=== PATIENT | male | born 1965 | race Caucasian/White ===

== ENCOUNTER 2019-01-17 01:20 | Outpatient (CLI) | payer BC, SELFPAY ==
[2019-01-17 08:41] LABS: Anion Gap 8.1 mmol/L (3-11); BUN 10 mg/dL (7-18); CO2 30.9 mmol/L (21.0-32.0); CREATININE 0.92 mg/dL (0.70-1.30); Calcium 9.7 mg/dL (8.5-10.1); Chloride 101 mmol/L (98-107); Cholesterol 224 mg/dL (50-200); Glucose 130 mg/dL (70-100); HDL Cholesterol 51 mg/dL (40-60); LDL CHOLESTEROL 155 mg/dL (<100); Potassium 4.3 mmol/L (3.5-5.1); Sodium 140 mmol/L (136-145); Triglyceride 60 mg/dL (30-150)
== END 2019-01-17 01:40 ==
PROVIDERS: PCP Internal Medicine; Visit Provider Physician Assistant Medical
DX: I10 Essential (primary) hypertension (principal); E11.9 Type 2 diabetes mellitus without complications
CPT/HCPCS: 36415; 80048; 80061; 83721

== ENCOUNTER 2020-03-29 04:05 | Emergency (ER) | payer OTHER, SELFPAY ==
[2020-03-29 04:09] VITALS: PULSE 138; RESP 16; TEMP 36.8; O2SAT 96
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
[2020-03-29 04:21] VITALS: BP 145/99; PULSE 124
== END 2020-03-29 04:30 | disposition home or self-care (01) ==
PROVIDERS: Emergency Provider Emergency Medicine; PCP Internal Medicine
DX: S80.212A Abrasion, left knee, initial encounter (principal); S00.81XA Abrasion of other part of head, initial encounter; S00.411A Abrasion of right ear, initial encounter; Y35.811A Legal intervention involving manhandling, law enforcement official injured, initial encounter; Y99.0 Civilian activity done for income or pay
CPT/HCPCS: 90471; 99284; 99283

== ENCOUNTER 2020-06-11 01:20 | Outpatient (CLI) | payer BC, SELFPAY ==
[2020-06-11 07:30] LABS: HCT 46.4 % (40.0-50.0); HGB 16.5 g/dL (13.5-17.5); Mean Corp. HGB Concentration 35.6 g/dL (32.0-36.0); Mean Corpuscular Hemoglobin 34.7 pg (27.0-33.0); Mean Corpuscular Volume 97.5 fL (80-95); Platelet Count 213 x1000/uL (130-400); RBC 4.76 m/cumm (4.50-6.00); RBC Distribution Width 12.3 % (11.8-14.1); White Blood Cell Count 7.86 k/cumm (4.4-10.8)
[2020-06-11 07:55] LABS: Hemoglobin A1C 6.8 % (3.8-5.6)
[2020-06-11 08:23] LABS: ALT 100 U/L (16-63); AST 48 U/L (15-37); Albumin 4.1 g/dL (3.4-5.0); Alkaline Phosphatase 51 U/L (46-116); BUN 11 mg/dL (7-18); Bilirubin, Total 0.8 mg/dL (0.2-1.0); CREATININE 0.86 mg/dL (0.70-1.30); Calcium 9.5 mg/dL (8.5-10.1); Calculated LDL 156 mg/dL (<100); Chloride 100 mmol/L (98-107); Cholesterol 211 mg/dL (<200); Glucose 161 mg/dL (74-106); HDL Cholesterol 47 mg/dL (40-60); Potassium 4.6 mmol/L (3.5-5.1); Sodium 137 mmol/L (136-145); Total Protein 7.5 g/dL (6.4-8.2); Triglyceride 44 mg/dL (<150)
== END 2020-06-11 01:40 ==
PROVIDERS: Physician Assistant; PCP Internal Medicine; Visit Provider Internal Medicine
DX: Z00.00 Encounter for general adult medical examination without abnormal findings (principal); I10 Essential (primary) hypertension; E78.5 Hyperlipidemia, unspecified; E11.9 Type 2 diabetes mellitus without complications
CPT/HCPCS: 36415; 80053; 80061; 85027; 82043; 82570; 83036

== ENCOUNTER 2020-06-12 14:22 | Outpatient (REF) | payer BC, SELFPAY ==
[2020-06-19 23:04] LABS: SARS-CoV-2 RNA Undetected (Undetected); SARS-CoV-2 Specimen Source Nasopharynx
== END 2020-06-12 14:42 ==
LOC: NCHCN 14:22
PROVIDERS: PCP Internal Medicine; Visit Provider Nurse Practitioner Family
DX: Z11.59 Encounter for screening for other viral diseases (principal); J02.9 Acute pharyngitis, unspecified
CPT/HCPCS: U0003

== ENCOUNTER 2020-11-27 03:34 | Outpatient (CLI) | payer BC, SELFPAY ==
[2020-11-28 13:39] LABS: COVID-19 RT-PCR UVMMC Result Negative (Negative)
== END 2020-11-27 03:54 ==
PROVIDERS: PCP Internal Medicine; Visit Provider Surgery
DX: Z11.59 Encounter for screening for other viral diseases (principal); Z01.818 Encounter for other preprocedural examination
CPT/HCPCS: U0003

== ENCOUNTER 2020-12-01 10:07 | Day surgery (SDC) | payer BC, SELFPAY ==
--- NOTE | 2020-12-01 07:04 | W.COLOREPORT ---
Date of service: 12/01/20 Time of Service: 11:12 Colonoscopy Report Date of procedure: 12/01/20 Pre-op diagnosis general: Hx of polyps Post-op diagnosis procedure note: same (transverse, descending and sigmoid polyps and diverticulosis) Procedure: Colonoscopy with polypectomy Surgeon: Bia Berrios Anesthesia proc note operative: other (General/ASA 2/Lakisha Hoffmann, TINA) Estimated blood loss (mL): 3 Pathology: other (Transverse, descending and sigmoid polyp) Complications: None Disposition: same day Indications: The patient is here for Colonoscopy pre-op. His last screening was in 2017 and was remarkable for tubulovillious adenomatous polyps. He has no family history of colon cancer. He has not had any bowel habit changes. -Discussed colonoscopy bowel prep as well as the procedure. Discussed possible complications of the procedure to include bleeding, pain, perforation, missed small lesion/polyp, sore throat, aspiration and adverse reaction to the medications. Questions were answered to patient?s satisfaction. No guarantees were implied or given. Prep: Miralax/Dulcolax Procedure Start Time: :12 Procedure End Time: 11:40 Retraction Time: 19 minutes Findings: 3 polyps Moderate descending and sigmoid diverticulosis Procedure Description: After informed consent was obtained the patient was taken to the procedure room and placed in a left decubitous position. Monitors were applied and a time out was done. The patients name, date of , procedure, allergies to medications and metal in their body was reviewed. The patient was then sedated. Once sedated and comfortable a rectal exam was done. External exam was normal. Internal exam revealed a normal sphincter tone and no palpable masses. The prostate felt smooth and slightly enlarged. The scope was then introduced and retro-flexed. No internal hemorrhoids were identified. The scope was then advanced to the cecum without difficulty. The ileocecal valve and appendiceal orifice were identified. The prep was good. The scope was then slowly retracted over 19 minutes back into the rectum. Polyps were removed with cold forceps in the transverse and sigmoid colon and with cold snare in the descending colon. There was moderate diverticulosis of the descending and sigmoid colon. The scope was removed and the patient was woken up and taken back to Same day surgery in stable condition. The patient tolerated the procedure well and there were no immediate complications. Follow up: The patient should follow up in 3-5 years unless they develop changes in bowel habits or other new gastrointestinal complaints.
--- NOTE | 2020-12-01 07:05 | W.PM.DSUDISC ---
Discharge Plan Disposition Patient Disposition: HOME Condition: Good Discharge Details Reason For Visit: Colonoscopy Attending Provider: Bia Berrios Primary Care Provider: Triston Alba Home Meds and New Rx's Prescriptions: Continued indomethacin 25 MG capsule 25 mg PO Q8H PRN RF: 0 red yeast rice 600 mg capsule 600 mg PO BID RF: 0 omega-3 fatty acids [Fish Oil Concentrate] 1,000 mg capsule 1,000 mg PO DAILY RF: 0 metoprolol tartrate 25 mg tablet 25 mg PO DAILY RF: 0 lisinopril 20 mg tablet 20 mg PO DAILY RF: 0 aspirin 81 MG tablet,chewable 81 mg PO DAILY Qty: 100 RF: 0 metformin 500 MG tablet 500 mg PO BID@0800,1700 Qty: 60 RF: 0 Discontinued polyethylene glycol 3350 17 gram/dose powder 238 g PO ONCE Qty: 238 RF: 0 bisacodyl [Dulcolax (bisacodyl)] 5 mg tablet,delayed release (DR/EC) 5 mg PO ONCE Qty: 4 RF: 0 Discharge Instructions Instructions: Diverticulosis (DC), Colorectal Polyps (DC) Additional Instructions: Findings: 3 polyps Diverticulosis Follow up: 3-5 years Please call if you develop: fevers >101.5 Nausea or Vomiting Abdominal pain that is not transient DAY SURGERY UNIT POST ENDOSCOPY INSTRUCTIONS 1. Because there will be medication in your system for the next 24 hours, you may feel a little sleepy. Your coordination will be affected. Therefore: a. Do not drive or operate dangerous equipment for 24 hours. b. Do not drink alcohol beverages for 24 hours (not even beer). c. Plan to go home and rest for the day. 2. Generally there are no restrictions on your activity after a day or so has gone by, but you may feel a bit fatigued for a few days. 3 After you arrive home you may have a light meal and return to a normal diet as you can tolerate it without feeling sick to your stomach. 4. After surgery, you may feel pain or discomfort. This should be only transient, but if it persists please contact your doctor. 5. If there are any questions regarding the findings of your procedure, please feel free to contact your doctor. 6. If you are unable to contact your doctor with a problem, contact the hospital at [phone]. 7. Continue all your regular medications unless directed otherwise. I understand the above instructions and have no questions. Signature of Patient or Responsible Adult Escort Date/Time Name of Responsible Adult Escort Signature of Nurse Date/Time Activity:: Activity as Tolerated Diet:: High fiber Discharge Orders Discharge Orders: Discharge Order (Routine); Ordered 12/01/20 Ordered By: Bia Berrios
[2020-12-01 10:17] VITALS: BP 164/103; PULSE 65; RESP 16; TEMP 36.6; O2SAT 96
[2020-12-01] MEDS: Lactated Ringers 1,000 ML 80 ML IV (10:44)
--- NOTE | 2020-12-01 11:14 | BOWEL_PTH ---
PATIENT: Damian Phillips LOC: [facility] U#:[id number] AGE/SX: 55/M ROOM: RE12/01/[address]: Bia Berrios MD : 1965 BED: DIS: 12/01/2020 SPEC #: [id number] RECD: 12/01/20 12:48 STATUS: RADHA REQ #: [id number] RENARD: 12/01/20 11:[address]: Bia Berrios DEPT: Surgical Specimen RECD BY: Alessia Weinstein ENTERED: 12/01/20 12:49 SP TYPE: Bowel OTHR DR: Triston Alba Tissues: 1 - BIOPSY BOWEL 2 - BIOPSY BOWEL 3 - BIOPSY BOWEL Procedures: GROSS AND MICRO LEVEL 4 Comments: [id number]
[2020-12-01 12:19] VITALS: BP 142/89; PULSE 63; RESP 16; TEMP 36.5; O2SAT 99
== END 2020-12-01 12:40 | disposition home or self-care (01) ==
LOC: SUR 10:07
PROVIDERS: PCP Internal Medicine; Visit Provider Surgery
PROC: 0DJD8ZZ Inspection of Lower Intestinal Tract, Via Natural or Artificial Opening Endoscopic (ICD-10-PCS; CPT 45378; principal; 2020-12-01 11:30)
DX: Z12.11 Encounter for screening for malignant neoplasm of colon (principal); Z86.010 Personal history of colon polyps; D12.3 Benign neoplasm of transverse colon; K63.5 Polyp of colon; K57.30 Diverticulosis of large intestine without perforation or abscess without bleeding; I10 Essential (primary) hypertension; E11.9 Type 2 diabetes mellitus without complications
CPT/HCPCS: 45385; 45380; 88305; J2001

== ENCOUNTER 2021-05-12 20:26 | Outpatient (REF) | payer BC, SELFPAY ==
[2021-05-12 18:52] LABS: Hemoglobin A1C 9.1 % (<5.7)
[2021-05-12 18:58] LABS: ALT 127 U/L (16-63); AST 58 U/L (15-37); Albumin 3.8 g/dL (3.4-5.0); Alkaline Phosphatase 70 U/L (46-116); Anion Gap 6.8 mmol/L (3-11); BUN 13 mg/dL (7-18); Bilirubin, Total 0.6 mg/dL (0.2-1.0); CO2 31.2 mmol/L (21.0-32.0); CREATININE 0.9 mg/dL (0.70-1.30); Calcium 9.9 mg/dL (8.5-10.1); Calculated LDL 146 mg/dL (<100); Chloride 102 mmol/L (98-107); Cholesterol 227 mg/dL (<200); Glucose 203 mg/dL (74-106); HDL Cholesterol 39 mg/dL (40-60); Potassium 4.6 mmol/L (3.5-5.1); Sodium 140 mmol/L (136-145); Total Protein 7.6 g/dL (6.4-8.2); Triglyceride 214 mg/dL (<150)
[2021-05-12 19:06] LABS: COMMENT (LAB VIEW ONLY) 125.77 mg/dL; Microalb ug/mg Crea 16.5 ug/mg Cr
== END 2021-05-12 20:27 | disposition home or self-care (01) ==
LOC: NCHCN 20:26
PROVIDERS: PCP Internal Medicine; Visit Provider Nurse Practitioner Family
DX: E11.9 Type 2 diabetes mellitus without complications (principal); E78.5 Hyperlipidemia, unspecified; I10 Essential (primary) hypertension
CPT/HCPCS: 80053; 80061; 82043; 82570; 83036

== ENCOUNTER 2021-09-21 09:36 | Outpatient (REF) | payer BC, SELFPAY ==
[2021-09-21 20:05] LABS: ALT 55 U/L (16-63); AST 38 U/L (15-37); Albumin 3.9 g/dL (3.4-5.0); Alkaline Phosphatase 47 U/L (46-116); Anion Gap 10.3 mmol/L (3-11); BUN 11 mg/dL (7-18); Bilirubin, Total 0.6 mg/dL (0.2-1.0); CO2 25.7 mmol/L (21.0-32.0); CREATININE 0.8 mg/dL (0.70-1.30); Calcium 9.7 mg/dL (8.5-10.1); Calculated LDL 122 mg/dL (<100); Chloride 101 mmol/L (98-107); Cholesterol 185 mg/dL (<200); Glucose 121 mg/dL (74-106); HDL Cholesterol 54 mg/dL (40-60); Potassium 4.7 mmol/L (3.5-5.1); Sodium 137 mmol/L (136-145); Total Protein 7.3 g/dL (6.4-8.2); Triglyceride 45 mg/dL (<150)
== END 2021-09-21 09:37 | disposition home or self-care (01) ==
LOC: NCHCN 09:36
PROVIDERS: PCP Internal Medicine; Visit Provider Nurse Practitioner Family
DX: E78.5 Hyperlipidemia, unspecified (principal); I10 Essential (primary) hypertension
CPT/HCPCS: 80053; 80061

== ENCOUNTER 2022-06-21 08:51 | Outpatient (REF) | payer BC, SELFPAY ==
[2022-06-21 19:45] LABS: COMMENT (LAB VIEW ONLY) 111.71 mg/dL; Microalb ug/mg Crea 25.2 ug/mg Cr
== END 2022-06-21 08:52 | disposition home or self-care (01) ==
LOC: NCHCN 08:51
PROVIDERS: PCP Internal Medicine; Visit Provider Nurse Practitioner Family
DX: E11.9 Type 2 diabetes mellitus without complications (principal)
CPT/HCPCS: 82043; 82570

== ENCOUNTER → 2022-07-21 01:35 | Outpatient (CLI) | payer BC, SELFPAY ==
--- NOTE | 2022-07-21 | DI.MRI_ITS ---
Exam(s) MR LUMBAR SPINE WO EXAM: MR LUMBAR SPINE WO CLINICAL HISTORY: LOSS OF STRENGTH R53.1 BILAT LEG PAIN M79.606 RADICULOPATHY M50.122. TECHNIQUE: Multiplanar multisequence MRI of the Lumbar spine was performed. COMPARISON: No exams were available for comparison FINDINGS: Five lumbar vertebrae are presumed. Conus medullaris is at normal level. There is no evidence of conus mass nor subjacent clumping of in trathecal nerve roots to suggest arachnoiditis. The distal thecal sac appears unremarkable, located at the mid S2 level..There is no evidence of Tarlov intrasacral cysts nor other significant findings within the sacral canal Bones:There are no fractures nor ominous osseous lesions in the lumbar vertebral bodies and visualize d sacrum. With respect to the individual levels... T12-L1: Unremarkable L1-2: Normal disc height and signal. No disc herniation nor central canal stenosis.No foraminal steno sis L2-3: Normal disc height. No disc herniation nor central canal stenosis.No foraminal stenosis.No face t arthropathy. L3-4: Normal disc height. There is annular bulging in the floor of the exiting right neural foramen butno foraminal stenosis.Focal annular bulging central and left paracentral with slight flattening of the thecal sac but no prominent central canal stenosis. The exiting left neural foramen is widely p atent. No facet arthropathy. L4-5: Relatively preserved disc height. Mild central annular bulging without a dominant disc herniat ion. Central canal dimensions are lower normal. No foraminal stenosis. No significant facet arthro siva L5-S1: This level exhibits mild disc space narrowing, more so right than left side and there is indee d mild Modic type 1 sub endplate marrow edema changes on the right side. There is some annular bulgi ng. There is very mild anterolisthesis of L5 upon S1, more so on the right side and there is asymmet marty annular bulging slightly right of center which is subligamentous. Central canal dimensions are w ithin normal limits at this level. There is no foraminal stenosis on either side this are on the lef t side at this level. On the right side there is minimal vertical foraminal stenosis due to the slig ht asymmetry of disc height loss on the right side when compared to the left side of this disc space. There is, however, no prominent foraminal stenosis. There are mild degenerative changes in the rig ht facet joint evident at this level. Soft tissues: paraspinal soft tissues appear unremarkable. IMPRESSION: 1. Mild multilevel findings at L3-4 and L5-S1 levels, as described above. 2. No large disc herniations, prominent central canal stenosis nor prominent foraminal stenosis. 3. No significant osseous lesions. DATA REPOSITORY:
== END ==
PROVIDERS: PCP Internal Medicine; Visit Provider Internal Medicine
DX: M43.17 Spondylolisthesis, lumbosacral region (principal)
CPT/HCPCS: 72148

== ENCOUNTER → 2022-07-23 00:36 | Outpatient (CLI) | payer BC, SELFPAY ==
--- NOTE | 2022-07-23 | DI.RAD_ITS ---
Exam(s) XR KNEE LT 3V AP,LAT,NIKKY EXAM: XR KNEE LT 3V AP,LAT,NIKKY CLINICAL HISTORY: BILAT LEG PAIN M79.606 LOSS OF STRENGTH R53.1. TECHNIQUE: 2D digital imaging was performed. COMPARISON: CR XR KNEE RT 3V AP,LAT,NIKKY from 07/23/2022 FINDINGS: 3 views No evidence of fracture but there is a prominent joint effusion, even larger than the opposite side. Chondrocalcinosis is noted as well as prominent soft tissue densities in both compartments. Signifi cant distension of the suprapatellar bursa, appearing to be masses at this level. IMPRESSION: Similar but more prominent findings as evident in the opposite-right knee. Suspect intra-articular s oft tissue masses in addition to the chondrocalcinosis, possibly PVNS/pigmented villonodular synoviti s. MRI recommended DATA REPOSITORY: RADIATION DOSE DELIVERED:
--- NOTE | 2022-07-23 | DI.RAD_ITS ---
Exam(s) XR KNEE RT 3V AP,LAT,NIKKY EXAM: XR KNEE RT 3V AP,LAT,NIKKY CLINICAL HISTORY: BILAT LEG PAIN M79.606 LOSS OF STRENGTH R53.1. TECHNIQUE: 2D digital imaging was performed. COMPARISON: No exams were available for comparison FINDINGS: 3 views No evidence of acute fracture but there is a prominent joint effusion noted signifying internal deran gement. In addition, there is chondrocalcinosis and there appear to be small loose intra-articular b odies evident anterior posteriorly. Mild narrowing of the medial joint space. Small marginal osteop hytes off all compartments. No ominous osseous lesions. In addition, there is a 9 x 6 millimeter calcific density evident in the anterior aspect of the diste nded suprapatellar bursa, just behind the quadriceps tendon and located 4 cm above the patella. IMPRESSION: No fractures. Degenerative changes. Large joint effusion. If clinically indicated follow-up MRI can be performed for added sensitivity and specificity. DATA REPOSITORY: RADIATION DOSE DELIVERED:
--- OUTSIDE RECORDS SUMMARY | 2022-07-23 00:37 | XMS_ITS | Encounter Summary ---
:1965 Author Organization [facility] Address [address] [place] [address] Care Team Providers Name Role Phone Unknown, Provider Primary Care Provider Unknown, Provider Unavailable Triston Alba MD Primary Care Provider Encounter Details Date Type Department Care Team Description 11/27/2020 Lab Requisition [facility] Outr Resulting Lab, Pathology & Laboratory Provider [facility] [address] [place] [address] Social History Tobacco Use Types Packs/Day Years Used Date Never Assessed Sex Assigned at Date Recorded Not on file documented as of this encounter Plan of Treatment Not on filedocumented as of this encounter Procedures Procedure Name Priority Date/Time Associated Diagnosis Comme nts COVID-19 TEST [facility] Today 11/27/2020 8:51 EST LAB PCR COVID-19 TESTING Routine 11/27/2020 8:51 EST Resu lts for this procedure are i n the results section. documented in this encounter Results COVID-19 TEST [facility] LAB PCR (11/27/2020 8:51 EST) Specimen Swab - Entire nasopharynx (body structur e) Performing Organization Address City/State/ZIP Code Phon e Number [facility] [address] [place] [address] SERVICES COVID-19 TESTING (11/27/2020 8:51 EST) COVID-19 rt-PCR Negative Negative [facility] Result Comment: [facility] This test has not been FDA c leared or approved. This test has been authorized by FDA under an EUA for use by authorized laboratories. This test has been authorized only for detection of nucleic acid fro SERVICES m 2019-nCoV, not for any oth er viruses or pathogens. This test is only authorized for the duration of the declaration that circumstances exist justifying the authorization of emergency use of in vitro d iagnostic tests for detectio n and/or diagnosis of 2019-nCoV under section 564(b)(1) of Act, 21 U.S.C ?? 360bbb-3(b) (1), unless the authorization is terminated or revoked sooner. Negative results do not prec lude 2019-nCoV infection and should not be used as the sole basis for treatment or other patient management decisions. Negative results must be combined with clinical observa tions, patient history, and epidemiological informatio n. Performed on the [employer] Fusion instrument Performing Lab [place] [facility] Lab [facility] SERVICES Specimen Swab Performing Organization Address City/State/ZIP Code Phon e Number [facility] [address] [place] [address] SERVICES documented in this encounter Visit Diagnoses Not on filedocumented in this encounter Care Teams Tight Cooper Relationship Specialty Start Date End Date Unknown, ProviderMD PCP - General 01/02/16 11/30/20 Triston Alba MD PCP - General 12/01/20 [address] [place] [address] Unknown, MD Ray 01/02/16 documented as of this encounter
--- OUTSIDE RECORDS SUMMARY | 2022-07-23 00:37 | XMS_ITS | Encounter Summary ---
:1965 Author Organization [facility] Address [address] [place] [address] Care Team Providers Name Role Phone Unknown, Provider Primary Care Provider Unknown, Provider Unavailable Encounter Details Date Type Department Care Team Description 11/16/2017 Hospital Encounter [facility] [place] Unknown, Provider, [facility] [address] [facility] [phone] [place] [address] (Work) [phone] Social History Tobacco Use Types Packs/Day Years Used Date Never Assessed Sex Assigned at Date Recorded Not on file documented as of this encounter Discharge Disposition Disposition Code Departure Means Destination Home or Self Residential documented in this encounter Plan of Treatment Not on filedocumented as of this encounter Visit Diagnoses Not on filedocumented in this encounter Care Teams Editorial Writer Relationship Specialty Start Date End Date Unknown, ProviderMD PCP - General 01/02/16 11/30/20 Unknown, ProviderMD 01/02/16 documented as of this encounter
--- OUTSIDE RECORDS SUMMARY | 2022-07-23 00:37 | XMS_ITS | Encounter Summary ---
:1965 Author Organization [facility] Address [address] [place] [address] Care Team Providers Name Role Phone Unknown, Provider Primary Care Provider Unknown, Provider Unavailable Encounter Details Date Type Department Care Team Description 11/16/[address] [facility] Iglesia Rodriguez, DO [address] [facility] [address] [place], [place] [id number] (Wo rk) Social History Tobacco Use Types Packs/Day Years Used Date Never Assessed Sex Assigned at Date Recorded Not on file documented as of this encounter Plan of Treatment Not on filedocumented as of this encounter Procedures Procedure Name Priority Date/Time Associated Diagnosis Comme nts SURGICAL PATHOLOGY Routine 11/16/2017 10:01 Resul ts for this EST procedure are i n the results section. documented in this encounter Results SURGICAL PATHOLOGY (11/16/2017 10:01 EST) Pathology Report: SURGICAL PATHOLOGY [facility]PORT [facility] Reports generated via electronic interface contain joe ginal data; LABORATORY however they are lacking the format of the original re port. SERVICES Caution should be taken when reading/interpreting unfo rmatted reports. Name: ? LEANDRO PHILLIPS ? Accession #: ? [id number] ? : ? 1965 (Age: [age]) ??M ? Collect Date: ? 11/16/2017 ? Location: ? [facility] ? Receive Date: ? 017 ? Provider: IGLESIA RODRIGUEZ DO Copy to: ADELSO SAEZ MD ? Final Pathologic Diagnosis: COLON, ASCENDING POLYP, BIOPSY: - ??Fragments of tubulovillous adenoma. Document reviewed and electronically signed by: OSCAR ARITA MD Report ??Date: 11/18/2017 14:21 By the signature above, the attending physician certif ies that he/she has personally conducted a gross and/or microscopic examin ation of the described specimens and rendered or confirmed the above diagnosi s. Specimen(s) Received: Ascending colon polyp x2 Clinical History: Screening for colon cancer Gross Description: ? Received in formalin labelled with proper patient identification (initials H, E) and ascending colon polyp are th ree light finn tissues (0.6 x 0.3 x 0.3 cm, 0.6 x 0.2 x 0.2 cm, and 0.3 x 0.2 x 0.2 cm). Jeni landon submitted in 1. Mimarina Mendez 11/17/2017 12:22 PM End of Report Specimen Performing Organization Address City/State/ZIP Code Phon e Number [facility] [address] [place] [address] SERVICES documented in this encounter Visit Diagnoses Not on filedocumented in this encounter Care Teams Material Clerk Relationship Specialty Start Date End Date Unknown, Provider, PCP - General 01/02/16 11/30/20 Unknown, ProviderMD 01/02/16 documented as of this encounter
--- OUTSIDE RECORDS SUMMARY | 2022-07-23 00:37 | XMS_ITS | Encounter Summary ---
:1965 Author Organization [facility] Address [address] [place] [address] Care Team Providers Name Role Phone Unknown, Provider Unavailable Triston Alba MD Primary Care Provider Encounter Details Date Type Department Care Team Description 12/01/2020 Lab Requisition [facility] Chris Berrios for other Pathology & MD Jeana general examination Laboratory Medicine [address] [place], [place] [address] [facility] [id number] [place] [id number] Social History Tobacco Use Types Packs/Day Years Used Date Never Assessed Sex Assigned at Date Recorded Not on file documented as of this encounter Plan of Treatment Not on filedocumented as of this encounter Procedures Procedure Name Priority Date/Time Associated Diagnosis Comme nts SURGICAL PATHOLOGY Today 12/01/2020 11:14 Encounter for othe r Results for this EST general examination procedur e are in the results section. documented in this encounter Results SURGICAL PATHOLOGY (12/01/2020 11:14 EST) Final Diagnosis A. COLON, DESCENDING, BIOPSY: [facility] - Fecal material and minute portion of benign colonic mucosa [facility] B. COLON, TRANSVERSE, BIOPSY: SERVICES - Tubular adenoma C. COLON, SIGMOID, BIOPSY: - Hyperplastic polyp Attestation By the signature [facility] Electronica lly below, the attending CENTER signed by Porfirio, physician certifies LABORATORY Lissy Pagan MD on that they have 1) SERVICES 12/02/2020 a t 1232 personally conducted a gross and/or microscopic examination of the described specimen(s), and/or personally interpreted the results of laboratory testing of the described specimen(s), and 2) personally rendered or confirmed the above diagnosis. Clinical History H/O colon polyps [facility] SERVICES Gross Description A. [facility] Received in formalin neil d with proper patient identification (initials H, E) and descending colon polyp is a single fragment of finn tissue (0.2 x 0.2 x 0.2 cm). The specimen is submitted entirely in A1. [facility] B. SERVICES Received in formalin neil d with proper patient identification (initials H, E) and transverse colon polyp are 2 fragments of finn tissue measuring 0.2 cm and 0.3 cm in greatest dimension. The specimens are submitted in B1. C. Received in formalin neil d with proper patient identification (initials H, E) and sigmoid polyp is a single fragment of finn tissue (0.2 x 0.2 x 0.2 cm). The specimen is submitted entirely in C1. DESHAWN VELIZ(ASCP) 12/01/2020 16:22 Performing Lab [facility] SERVICES Scanned Images [facility] SERVICES Specimen Tissue - Colon, Polyp Tissue specimen (specimen) - Colon, Poly p Tissue specimen (specimen) - Colon, Poly p Performing Organization Address City/State/ZIP Code Phon e Number [facility] [address] [place] [address] SERVICES documented in this encounter Visit Diagnoses Diagnosis Encounter for other general examination documented in this encounter Care Teams Practicing Dermatologist Relationship Specialty Start Date End Date Triston Alba MD PCP - General 12/01/20 [address] [place] [address] Unknown, MD Ray 01/02/16 documented as of this encounter
== END ==
PROVIDERS: PCP Internal Medicine; Visit Provider Nurse Practitioner Family
DX: M11.261 Other chondrocalcinosis, right knee (principal); M17.11 Unilateral primary osteoarthritis, right knee
CPT/HCPCS: 73562

== ENCOUNTER 2022-08-27 11:16 | Outpatient (CLI) | payer BC, SELFPAY ==
--- NOTE | 2022-08-27 11:00 | DI.RAD_ITS ---
Exam(s) XR FINGER RT INDEX EXAM: XR FINGER RT INDEX CLINICAL HISTORY: right index finger pain TECHNIQUE: COMPARISON: No exams were available for comparison FINDINGS: Three views were obtained. There is marked soft tissue swelling centered around the PIP joint. Ther e is an area of cortical loss with a scalloped lytic lesion of the head of the proximal phalanx, this is probably not associated with the articular surface. Minimal adjacent soft tissue calcification i s noted. There are degenerative changes of the 2nd MTP CP joint with subchondral cyst formation. No other significant findings. IMPRESSION: Lytic lesion head of the proximal phalanx of the index finger with associated soft tissue swelling, c linical correlation is requested regarding the possibility of infectious process. Other etiologies i ncluding benign or malignant neoplastic disease should also be considered. RADIATION DOSE DELIVERED: Total DLP
== END 2022-08-27 11:17 | disposition home or self-care (01) ==
LOC: DIORS 11:16
PROVIDERS: PCP Internal Medicine; Referring Provider Internal Medicine; Visit Provider Physician Assistant
DX: M79.644 Pain in right finger(s) (principal); M79.89 Other specified soft tissue disorders; M85.841 Other specified disorders of bone density and structure, right hand
CPT/HCPCS: 73140

== ENCOUNTER 2022-08-30 10:55 | Outpatient (REF) | payer BC, SELFPAY ==
[2022-08-30 19:17] LABS: ALT 50 U/L (16-63); AST 35 U/L (15-37); Albumin 4.1 g/dL (3.4-5.0); Alkaline Phosphatase 53 U/L (46-116); Anion Gap 7.8 mmol/L (3-11); BUN 13 mg/dL (7-18); Bilirubin, Total 0.6 mg/dL (0.2-1.0); CO2 29.2 mmol/L (21.0-32.0); CREATININE 0.9 mg/dL (0.70-1.30); Calcium 9.8 mg/dL (8.5-10.1); Calculated LDL 119 mg/dL (<100); Chloride 99 mmol/L (98-107); Cholesterol 182 mg/dL (<200); Estimated GFR 100.24 (mL/min/1.73m2); Glucose 113 mg/dL (74-106); HDL Cholesterol 55 mg/dL (40-60); Potassium 4.9 mmol/L (3.5-5.1); Sodium 136 mmol/L (136-145); Total Protein 8.2 g/dL (6.4-8.2); Triglyceride 44 mg/dL (<150)
== END 2022-08-30 10:56 | disposition home or self-care (01) ==
LOC: NCHCN 10:55
PROVIDERS: PCP Internal Medicine; Visit Provider Nurse Practitioner Family
DX: I10 Essential (primary) hypertension (principal); E11.9 Type 2 diabetes mellitus without complications; E78.5 Hyperlipidemia, unspecified
CPT/HCPCS: 80053; 80061

== ENCOUNTER → 2022-09-03 00:07 | Outpatient (CLI) | payer BC, SELFPAY ==
--- NOTE | 2022-09-03 | DI.MRI_ITS ---
Exam(s) MR LOWER JOINT LT WO EXAM: MR LOWER JOINT LT WO CLINICAL HISTORY: LOOSE BODY LEFT KNEE TECHNIQUE: Multiplanar multisequence MRI of the left knee was performed. COMPARISON: CR XR KNEE LT 3V AP,LAT,NIKKY from 07/23/2022 MR MR LOWER JOINT RT WO from 09/03/2022 07/23/2022 reviewed.. Plain films of the left knee performed FINDINGS: EFFUSION: There is a large joint effusion noted and there is a myriad of synovial densities consisten t with synovial chondromatosis. The appearance is less likely to represent PVNS. MARROW:No evidence of fracture or prominent bone contusion and no erosions. There is mild subarticul ar bone edema and there is some mild edema around a 7 x 5 millimeter degenerative subarticular cyst i n the posterior aspect of the tibial plateau subjacent to the PCL attachment site, similar to the opp osite knee. No ominous osseous lesions. PATELLOFEMORAL COMPARTMENT: The quadriceps tendon is intact. The patellar ligament is intact. There is mild thinning of the retropatellar cartilage, somewhat difficult to evaluate because of becka on artifact on the axial sequence. There is no significant signal abnormality within the patella its elf on this side.There is no intraosseous signal to suggest recent patellar dislocation. There are no patellar retinacular tears. CRUCIATE LIGAMENTS: The anterior cruciate ligament is intact.Posterior cruciate ligament is thickened and exhibits abnormal signal but without high-grade tear. MEDIAL COMPARTMENT/MEDIAL MENISCUS: There is a small focal tear on the undersurface of the posterior horn of the medial meniscus. This does not reach the superior surface. There is no bucket-handle co nfiguration. The meniscal root is intact. The anterior horn is intact.. There are mild degenerative changes in the cartilage over the medial femoral condyle. No large chond ral defects. No osteochondral defects. There are marginal osteophytes off both the inner and outer aspects of the medial condyle. No prominent subarticular edema. No edema in the subjacent medial ti bial plateau. MEDIAL COLLATERAL LIGAMENT: Intact LATERAL COMPARTMENT/LATERAL MENISCUS: There is no evidence of obvious lateral meniscal tear.There is mild degenerative change in the cartilage over the lateral condyle. No large chondral defects nor os teochondral defects. Small marginal osteophytes off the inner and outer aspects of the lateral condy le. ILIOTIBIAL BAND: Intact LATERAL COLLATERAL LIGAMENT COMPLEX: Biceps femoris tendon component of the LCL complex is intact.The fibular collateral ligament is significantly attenuated and there is significant abnormal tissue thi ckening and fluid within the popliteus tendon sheath, identical to the opposite side and difficult to determine if this is intact structure. IMPRESSION: 1. 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 The appearance and signal charac teristics of these synovial based densities and lack of bone erosions do not favor a diagnosis of pig mented villonodular synovitis. 2. Small tear of the posterior horn medial meniscus. Anterior horn is intact. No evidence of obviou s lateral meniscal tear. Mild-moderate degenerative changes in the medial lateral compartments. No prominent chondral defects nor osteochondral defects. Degenerative subarticular cysts in the posteri or aspect of the tibial plateau subjacent to the PCL attachment, similar to the opposite side. 3. Medial collateral ligament is intact. The popliteus component of the lateral collateral ligament complex appears identical to the opposite side with significant abnormal thickening tissue in this sh eath with poor differentiation of the actual tendon. In addition, the fibular collateral ligament co mponent of the LCL complex is significantly attenuated on this side. The biceps femora is tended com ponent of the LCL appears intact. Iliotibial band is intact. 4. The anterior cruciate ligament is intact. Posterior cruciate ligament is abnormally thickened but otherwise intact. DATA REPOSITORY:
--- NOTE | 2022-09-03 07:45 | DI.MRI_ITS ---
Exam(s) MR LOWER JOINT RT WO EXAM: MR LOWER JOINT RT WO CLINICAL HISTORY: KNEE LOOSE BODY, M23.40 TECHNIQUE: Multiplanar multisequence MRI of the knee was performed. COMPARISON: CR XR KNEE RT 3V AP,LAT,NIKKY from 07/23/2022 CR XR KNEE LT 3V AP,LAT,NIKKY from 07/23/2022 MR MR LOWER JOINT LT WO from 09/03/2022 FINDINGS: EFFUSION: There is a large joint effusion with multiple small calcific densities. Findings are consi stent with synovial osteochondromatosis. Average size of synovial densities is 4-5 millimeters. Pos teriorly there is a thin mckeon cyst which measures 4.5 cm cephalocaudal length. MARROW:No evidence of fracture. There are 2 adjacent degenerative subarticular cyst in the mid aspec t of the tibial plateau subjacent to the PCL insertion site. These exhibit combined measurement of 1 .5 cm wide by 1.3 cm craniocaudal by 1 cm AP. There is a mild amount of surrounding bone edema at th is level. There also degenerative subarticular cysts seen in the outer aspect of the lateral femoral condyle. PATELLOFEMORAL COMPARTMENT: The quadriceps tendon is intact. The patellar ligament is intact. There is multilevel surface irregularity of the inferior half of the retropatellar cartilage. No ost eochondral defects. No abnormal intraosseous signal nor degenerative cysts in the patella.There is n o intraosseous signal to suggest recent patellar dislocation. There are no patellar retinacular tears . CRUCIATE LIGAMENTS: Mild thinning of the ACL but no high-grade tear. There is some signal abnormalit y in the PCL but no high-grade tear. MEDIAL COMPARTMENT/MEDIAL MENISCUS: There is mild tearing of the inner edge of the medial meniscus.Me niscal root is intact. No meniscal height loss. No extrusion. No significant intrusion. No flippe d fragments.. Mild degenerative cartilage changes over the medial condyle. No osteochondral defects.No subarticula r bone edema in the medial femoral condyle. Small marginal osteophytes of both the inner and outer a spects of the medial femoral condyle. MEDIAL COLLATERAL LIGAMENT: Intact LATERAL COMPARTMENT/LATERAL MENISCUS: There appears to be some tearing of the anterior horn of the la teral meniscus. Posterior horn appears intact.Mild cartilage loss over the lateral femoral condyle. There are confluent subarticular cysts at the main weight-bearing surface ILIOTIBIAL BAND: Which have combined measurement of 1 cm AP by 0.5 cm wide by 1.5 cm craniocaudal. T here is minimal surrounding bone edema. No osteochondral defects. LATERAL COLLATERAL LIGAMENT COMPLEX: The fibular collateral ligament and biceps femoral tendon are in tact. However, there is significant abnormal thickening of the popliteus tendon component to a diame ter of 1.8 cm. Thisthere is also of fluid in the tendon sheath. IMPRESSION: 1. There is a prominent knee joint effusion and multitude of synovial densities consistent with synov ial osteochondromatosis. 2. There are prominent degenerative subarticular cysts in the posterior aspect of the mid tibial plat eau subjacent to the PCL attachment site as well as in the subarticular aspect of the lateral femoral condyle. There are no neoplastic appearing bone lesions. 3. Cruciate and collateral ligaments are intact with the exception of gross abnormal thickening of th e popliteus tendon component of the lateral collateral ligament complex or the immediate surrounding tissue. 4. Subtle tear of the inner aspect of the medial meniscus. Also tear of the anterior horn of the lat eral meniscus. Other findings as above. DATA REPOSITORY:
== END ==
PROVIDERS: PCP Internal Medicine; Visit Provider Nurse Practitioner Family
DX: M25.461 Effusion, right knee (principal); S83.281A Other tear of lateral meniscus, current injury, right knee, initial encounter; S83.241A Other tear of medial meniscus, current injury, right knee, initial encounter; S83.242A Other tear of medial meniscus, current injury, left knee, initial encounter; M25.462 Effusion, left knee
CPT/HCPCS: 73721

== ENCOUNTER → 2022-09-29 01:41 | Outpatient (CLI) | payer BC, SELFPAY ==
[2022-09-29] MEDS: Gadoterate meglumine 20 ML SYRINGE IVP (08:25)
--- NOTE | 2022-09-29 08:45 | DI.MRI_ITS ---
Exam(s) MR UPPER EXTREMITY RT WO/W EXAM: MR UPPER EXTREMITY RT WO/W CLINICAL HISTORY: PAIN, ? MASS RIF,R22.31. TECHNIQUE: Multiplanar multisequence MRI was performed. CONTRAST MATERIAL: IV Contrast: 20 mL of Dotarem contrast administered. COMPARISON: Plain films 27 August 2022 FINDINGS: Bones: There is no fracture or contusion. There is and erosion the radial aspect of the proximal pha lanx distally. There is a low signal area J directly adjacent to this on both T1 and T2 weighted francisca ges. There is mild surrounding edema. There is some surrounding enhancement following IV contrast. Findings could represent a longstanding chronic infectious or inflammatory process or may represent a mass such as giant cell tumor of the tendon sheath. A cystic area is noted in the 3rd metacarpal h ead. DATA REPOSITORY:
== END ==
PROVIDERS: PCP Internal Medicine; Visit Provider Student in an Organized Health Care Education/Training Program
DX: R22.31 Localized swelling, mass and lump, right upper limb (principal)
CPT/HCPCS: 73220

== ENCOUNTER 2022-11-19 08:07 | Day surgery (SDC) | payer BC, SELFPAY ==
[2022-11-19] VITALS (8 sets, daily range): BP systolic 104–144; BP diastolic 55–88; PULSE 59–76; RESP 16–18; TEMP 36.2–36.6; O2SAT 96–99; BMI 32.2
--- NOTE | 2022-11-19 08:15 | ANES.PREOP_ITS ---
General Info Date of Service Date Performed: 11/19/22 Height: 5 ft 10 in Weight: 102 kg Body Mass Index (BMI): 32.2 Surgical Procedure: Operation Date: 11/19/22 10:40 Proposed Procedure Side Surgeon p Knee Arthroscopy w/Loose Body Removal, Extensive Synovectomy and any other indicated meniscal and chondral procedure Bilateral Torres Perez MD Meds Allergies and Home Medications Allergies Allergy/AdvReac Type Severity Reaction Status Date / Time atorvastatin Allergy Intermediate Tachycardia Verified 11/16/22 14:45 Home Medication Medication Instructions Recorded lisinopril 20 mg tablet 20 mg PO DAILY 09/22/20 omega-3 fatty acids 1,000 mg 1,000 mg PO DAILY 09/22/20 capsule (Fish Oil Concentrate) metformin 500 mg tablet 1,000 mg PO DAILY 06/29/22 aspirin 81 mg tablet,delayed 81 mg PO DAILY 09/12/22 release (Adult Aspirin Regimen) Current Visit Medications: Current Medications Generic Name Dose Route Start Last Admin Trade Name Freq PRN Reason Stop Dose Admin Ringer's Solution 1,000 mls @ 30 mls/hr 11/19/22 06:00 IV 11/19/22 16:00 INFUSION PRIYA Cefazolin Sodium/Dextrose 2 gm in 50 mls @ 100 mls/hr 11/19/22 06:00 Ancef Duplex IVPB 11/19/22 23:59 PREOP PRIYA IV Miscellaneous Supplies 1 each 11/19/22 06:00 Iv Access IV 11/19/22 23:59 DIRECTED PRIYA Oxycodone HCl 0 mg 11/19/22 07:10 Oxycodone 5 Mg Tab PO Q3H PRN PRN Pain Sodium Chloride 0 ml 11/19/22 06:00 Normal Saline Flush 10 Ml Syr IV 11/19/22 23:59 PRN PRN Sodium Chloride 0 ml 11/19/22 06:00 Normal Saline 10 Ml Vial IJ 11/19/22 23:59 DIRECTED PRN Sterile Water 0 ml 11/19/22 06:00 Water,Injection,Sterile 10 Ml Vial IJ 11/19/22 23:59 DIRECTED PRN PFSH Active Problems Active Problems: Problem Status Onset Code 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 atorvastatin caused his tachycadia Gout Hyperlipidemia Hypertension Pain of finger of right hand PTSD (post-traumatic stress disorder) Tubulovillous adenoma of colon Type 2 diabetes mellitus Surgical History Surgical History Colonoscopy - MAC (11/16/17) Tobacco Smoking/Tobacco Use Status: Former Tobacco Use Alcohol Alcohol Intake: current Alcohol intake frequency: 3 or more drinks per day Alcohol type: beer Substance Use Substance use: Never Substance use type: does not use Vital Signs and Lab Results Vital Signs Most Recent Vital Signs in EMR: Temp Pulse Resp BP Pulse Ox 36.5 C 76 18 144/87 H 98 11/19/22 08:26 11/19/22 08:26 11/19/22 08:26 11/19/22 08:26 11/19/22 08:26 Lab Results Blood Type / Crossmatch: No Data to Display Complete Blood Count: No Data to Display Complete Metabolic Panel: No Data to Display Liver Function Panel: No Data to Display Coagulation Panel: No Data to Display Cardiac Panel: No Data to Display Arterial Blood Gas: No Data to Display Venous Blood Gas: No Data to Display Pancreas Panel: No Data to Display Thyroid Panel: No Data to Display Infectious Disease: No Data to Display Blood Cultures: No Data to Display Toxicology Panel: No Data to Display Imaging and Studies Imaging and Studies Study information below may be from another EMR and interpreted by another provider. Please see original notes in EMR for more complete details. Stress Test Summary: 12/2015: normal study. Echocardiogram Summary: 12/2015: LVEF 60-65%, normal RvFxn, no sig valve issues. Anesthesia Assessment and Plan Anesthesia History Personal History: No History of Anesthesia Complications Family History: No Family History of Anesthesia Complications Exercise Tolerance Exercise Tolerance: Metabolic Equivalents>4 Cardiac & Pulmonary Exam Cardiac Exam: Normal S1/S2 Heart Sounds Pulmonary Exam: Clear Bilateral Breath Sounds Implantable Cardiac Device Does patient have a Pacemaker or an ICD?: No Airway Exam Known Difficult Airway: No Mallampati Class: 2 Mouth Opening: Normal (> 3cm) Thyromental Distance: Greater than 3 cm Neck Range of Motion: Limited ROM Neck Circumference: Thick Teeth Condition: Normal Dentition ASA Classification ASA Score: ASA 2 Emergency Case?: No NPO Status NPO Status: NPO Clears >2 hours, Solids >8 hours Anesthesia Plan Resuscitation Status: Full Code Anesthesia Technique: General Anesthesia Airway Planned: Endotracheal Tube Monitors Used: Standard Monitors Preoperative Comments:: 57 yo male for bilateral knee scope. Sig PMHx: cervical spondylosis (neck feels ok today), TBI (listed on health h istory, but denies, does endorese PTSD - which is under control per him), HTN (lisinopril), DM2 (metformin), AV tabitha re-entry tachy (r/t atorcastatin, echo, ekg in 2016 unremarkable), former, daily EtOH. His hands do go numb at night while he is sleeping. Denies major cardiac, pulmonary, liver, kidney issues. denies any GERD. Plan: NIKI
[2022-11-19] MEDS: Lactated Ringers 1,000 ML 30 ML IV (08:59)
[2022-11-19] MEDS: ceFAZolin 2 GM/50 ML BAG IVPB (10:31)
--- NOTE | 2022-11-19 11:15 | SYNOVIUM_PTH ---
PATIENT: Damian Phillips LOC: [facility] U#:[id number] AGE/SX: 57/M ROOM: RE11/19/[address]: Torres Perez MD : 1965 BED: DIS: 11/19/2022 SPEC #: [id number] RECD: 11/19/22 12:38 STATUS: RADHA REQ #: [id number] RENARD: 11/19/22 11:[address]: Torres Perez DEPT: Surgical Specimen RECD BY: Alessia Weinstein ENTERED: 11/19/22 12:39 SP TYPE: SYNOVIUM OTHR DR: Triston Alba Tissues: 1 - SYNOVIUM/IAL 2 - SYNOVIUM/IAL Procedures: GROSS AND MICRO LEVEL 4 Comments: [id number]
[2022-11-19] MEDS: Bupivacaine 0.25% Pres-Free W/EPI 30 ML VIAL (11:49)
[2022-11-19] MEDS: EPINEPHrine 30 MG/30 ML VIAL (11:50)
[2022-11-19] MEDS: MORPHine 4 MG/ML SYR (11:50)
[2022-11-19 11:58] LABS: Clarity Clear; Nucleated Cells 389 uL (0)
[2022-11-19 12:24] LABS: Mononuclear Cells 85 %; Polynuclear Cells 15 %
[2022-11-19] MEDS: HYDROmorphone 2 MG/ML SYR IVP ×2 (13:00→13:10)
--- NOTE | 2022-11-19 13:15 | W.PM.DSUDISC ---
Date of service: 11/19/22 Time of Service: 14:00 Discharge Plan Disposition Patient Disposition: Home Discharge Details Attending Provider: Torres Perez Primary Care Provider: Triston Alba Home Meds and New Rx's Prescriptions: New naproxen 250 mg tablet 250 - 500 mg PO BID PRNQty: 40 0RF Rx Instructions: take with a meal oxycodone 5 mg tablet 5 - 10 mg PO Q4H MDD 30 mg PRN (Reason: moderate to severe pain) Qty: 18 0RF Continued omega-3 fatty acids [Fish Oil Concentrate] 1,000 mg capsule 1,000 mg PO DAILY lisinopril 20 mg tablet 20 mg PO DAILY metformin 500 mg tablet 1,000 mg PO DAILY aspirin [Adult Aspirin Regimen] 81 mg tablet,delayed release (DR/EC) 81 mg PO DAILY Discontinued indomethacin 25 MG capsule 25 mg PO Q8H PRN Discharge Instructions Additional Instructions: Surgery: Bilateral knee arthroscopy with extensive synovectomy and loose body removal for synovial chondromatosis, and partial medial & lateral meniscectomy Activity: Weightbearing as tolerated. Advance range of motion as comfort allows. No crutches needed as soon as comfortable. Recommend avoiding kneeling, pivoting, and squatting for 6-8 weeks. A physical therapy prescription will be provided separately in the office at follow-up if needed. Prescriptions: Aspirin 81 mg take 1 twice daily for 14 days to prevent a blood clot (starting tomorrow morning), and then may go back to once daily Naproxen 250 mg take 1-2 every 12 hours with a meal as needed for moderate pain (do not use at same time as other NSAIDs) Oxycodone 5 mg take 1-2 every 4-6 hours as needed for severe pain You may use [id number] Tylenol (acetaminophen) as needed for mild pain. These pain medications may be taken all at once or in different combinations as needed. Also, recommend Colace (docusate) as a stool softener as surgery and pain medicine cause constipation. You may try [id number] diphenhydramine (Benadryl) 25-50 mg nightly as a sleep aid Dressings: Leave dressing in place for 3 days. May then remove and leave open to air or cover incisions with Band-Aids. May shower after 5 days. Follow-up: 10-[address] Perez You may take off the leg compression stockings this evening at home. You may also leave them on a few days longer if you have a history of leg swelling or edema. Let us know right away if you develop any redness, drainage, fevers, chest pain, or trouble breathing. Do not drink alcohol or drive for at least 24 hours after anesthesia. Please call the office during business hours with any questions or concerns. Discharge Orders Discharge Orders: Discharge Order (Routine); Ordered 11/19/22 Ordered By: Torres Perez DS: Diagnosis Discharge Diagnosis (1) Chondromatosis of synovium of knee joint: Status: Acute
[2022-11-19] MEDS: Normal Saline 10 ML VIAL IJ (13:18)
--- NOTE | 2022-11-19 13:18 | W.ANESPOSTOP ---
Postoperative Evaluation Date, Time and Location Date Performed: 11/19/22 Time Performed: 13:18 Patient Location: PACU Vital Signs Most Recent Imported Vital Signs: Most Recent Vital Signs Temp Pulse Resp BP Pulse Ox 36.6 C 63 16 115/78 98 11/19/22 13:15 11/19/22 13:15 11/19/22 13:15 11/19/22 13:15 11/19/22 13:15 Pain Score Most Recent Pain Score: Most Recent Pain Score Pain Level 2 11/19/22 13:15 Assessment Mental Status: Awake (Alert & Oriented to Patient Baseline) Airway and Respiratory Function: Patent airway with normal (patient baseline) respiratory exam Cardiovascular Function: Hemodynamically Stable Hydration Status: Adequately Hydrated Nausea & Vomiting: No Nausea or Vomiting Pain: Pain is tolerable per patient Peripheral Nerve Block: Patient did not receive a nerve block
--- NOTE | 2022-11-19 13:27 | W.PM.OP ---
Date of service: 11/19/22 Time of Service: 11:00 Operative Note Operative Note DATE OF PROCEDURE: 11/19/22 PRE-OP DIAGNOSIS: 1. 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 Bilateral medial and lateral meniscus tears POST-OP DIAGNOSIS: same PROCEDURE: Left knee 1. Partial medial & lateral meniscectomy, CPT #43345 2. Greater than 2 compartment synovectomy, CPT #36515: Patellofemoral, intercondylar, medial and lateral gutters 3. Loose body removal, CPT #52397: Large confluence pathologic cartilage and synovium about 15 x 10 x 5 mm from the lateral compartment removed through an enlarged anterior lateral portal arthrotomy Right knee 1. Partial medial & lateral meniscectomy, CPT #72229 2. Greater than 2 compartment synovectomy, CPT #42582: Patellofemoral, intercondylar, medial and lateral gutters 3. Loose body removal, CPT #18942: Moderately large confluence pathologic cartilage and synovium about 10 x 10 x 5 mm from the lateral compartment removed through an enlarged anterior lateral portal arthrotomy SURGEON: Torres Perez ONCOLOGY ACCOUNT SPECIALIST: Amira Raya ANESTHESIA TYPE: Local By Surgeon and General LMA/ETT Refer to Anesthesia Record ESTIMATED BLOOD LOSS: 15 PATHOLOGY: none sent TOURNIQUET TIME: 0 Patient was transported to: PACU Patient's condition: stable Indications: Please see complete medical record for details. Findings: Exam under anesthesia: Significant bilateral knee effusions and palpable loose bodies. Left worse than right flexion contracture. Stable/stiff Lennox, varus, and valgus stress. Arthroscopic findings: Bilaterally profound hemorrhagic synovitis patellofemoral area, intercondylar area, medial and lateral gutters. Bilateral white to white and red zone medial and lateral meniscus degenerative type fraying tearing. Left side: Large synovial cartilaginous abnormal structure lateral gutter and moderate additional pathologic growth anterior intercondylar area. Right side: Moderately large synovial cartilaginous abnormal structure lateral gutter and small additional abnormal growth intercondylar area. Bilaterally intact ACL, PCL. Bilaterally significant diffuse cartilage thinning. Procedure Description: In the operating room, general anesthesia was induced. The patient was positioned supine on the operating room table. All bony prominences were well-padded. Preoperative antibiotics were administered. The L bilateral knees were prepped and draped in the usual sterile fashion. The correct patient, procedure, and sides of the procedure were all verified prior to incision. Exam under anesthesia was performed. For each knee, 10 cc of 0.25% bupivacaine containing epinephrine was infiltrated about the planned anteromedial and anterolateral knee arthroscopy portals. Starting with the left side, the portals were established and a complete diagnostic arthroscopy was performed with relevant findings detailed above. Initial large effusion was drained through the arthroscope sheath. The mechanical shaver was then used to remove pathologic synovium sequentially working through the compartments of the knee with particular focus patellofemoral, medial and lateral gutters, and intercondylar area. There were large abnormal cartilaginous synovial growths that had to be removed using a pituitary rongeur through enlarged anterior lateral portal arthrotomy. A moderately sized abnormal intercondylar growth was removed similarly. Synovial biopsy was also obtained from the patellofemoral area with a pituitary rongeur. These tissue samples were placed into a specimen cup and sent to the lab specimens. The mechanical shaver was used to resect as much abnormal synovium, cartilage, remove all loose bodies as possible working sequentially through the different compartments of the knee and continuing progress as space and visualization improved. Lastly, the medial and lateral menisci were identified and had significant degenerative tear fraying of the white and white-red zones each about the bodies and posterior horn. These were smooth contoured and resected to a stable margin using the mechanical shaver. Under direct arthroscopic visualization an 18-gauge needle was passed into the knee from superolateral into the suprapatellar pouch. The knee was copiously irrigated with arthroscopic fluid until there was a clear effluent before being drained of all fluid. The anteromedial and anterolateral portals were closed in 3-0 Monocryl in a buried interrupted fashion. 20 cc of 0.25% bupivacaine with epinephrine containing 4 mg of morphine was infiltrated into the knee through the previously placed needle. Mastisol, Steri-Strips, and 4 x 4 gauze were applied over the incisions followed by sterile soft roll. The knee was then wrapped gently with an JORDAN comressive bandage. Proceeding to the right side, the portals were established and a complete diagnostic arthroscopy was performed with relevant findings detailed above. Similarly, the large effusion was drained through the arthroscope sheath over, this time synovial fluid was saved in a specimen cup and sent to the lab for analysis. The mechanical shaver was then used to remove pathologic synovium sequentially working through the compartments of the knee with particular focus patellofemoral, medial and lateral gutters, and intercondylar area. Similarly, there were large abnormal cartilaginous synovial growths that had to be removed using a pituitary rongeur through enlarged anterior lateral portal arthrotomy. On this side, A smaller but still large abnormal intercondylar growth was removed similarly. Synovial biopsy was also obtained from the patellofemoral area with a pituitary rongeur. These tissue samples were placed into a specimen cup and sent to the lab specimens. The mechanical shaver was used to resect as much abnormal synovium, cartilage, remove all loose bodies as possible working sequentially through the different compartments of the knee and continuing progress as space and visualization improved. Lastly, the medial and lateral menisci were identified and had moderate lateral and mild medial degenerative tear fraying of the white and white-red zones each about the bodies and posterior horn. These were smooth contoured and resected to a stable margin using the mechanical shaver. Under direct arthroscopic visualization an 18-gauge needle was passed into the knee from superolateral into the suprapatellar pouch. The knee was copiously irrigated with arthroscopic fluid until there was a clear effluent before being drained of all fluid. The anteromedial and anterolateral portals were closed in 3-0 Monocryl in a buried interrupted fashion. 20 cc of 0.25% bupivacaine with epinephrine containing 4 mg of morphine was infiltrated into the knee through the previously placed needle. Mastisol, Steri-Strips, and 4 x 4 gauze were applied over the incisions followed by sterile soft roll. The knee was then wrapped gently with an JORDAN comressive band The patient awoke from anesthesia without complication and was transferred to the recovery room in a stable condition.
== END 2022-11-19 14:15 | disposition home or self-care (01) ==
PROVIDERS: PCP Internal Medicine; Visit Provider Student in an Organized Health Care Education/Training Program
PROC: (CPT 29870; principal; 2022-11-19 10:30)
DX: M23.232 Derangement of other medial meniscus due to old tear or injury, left knee (principal); M23.262 Derangement of other lateral meniscus due to old tear or injury, left knee; M23.261 Derangement of other lateral meniscus due to old tear or injury, right knee; M23.231 Derangement of other medial meniscus due to old tear or injury, right knee; M65.861 Other synovitis and tenosynovitis, right lower leg; M65.862 Other synovitis and tenosynovitis, left lower leg
CPT/HCPCS: 29876; 29880; 88305; 87070; 87205; 89051; 89060; J0131; J0690; J1100; J1170; J2270; J2405; J2704; J3475

== ENCOUNTER 2022-12-02 08:54 | Outpatient (REF) | payer BC, SELFPAY ==
[2022-12-02 19:08] LABS: Anion Gap 5.6 mmol/L (3-11); BUN 12 mg/dL (7-18); CO2 29.4 mmol/L (21.0-32.0); Calcium 9.6 mg/dL (8.5-10.1); Chloride 100 mmol/L (98-107); Estimated GFR 88.33 (mL/min/1.73m2); Glucose 144 mg/dL (74-106); Potassium 4.9 mmol/L (3.5-5.1); Sodium 135 mmol/L (136-145); Uric Acid 8.2 mg/dL (3.5-7.2)
== END 2022-12-02 08:55 | disposition home or self-care (01) ==
LOC: NCHCN 08:54
PROVIDERS: PCP Internal Medicine; Visit Provider Nurse Practitioner Family
DX: I10 Essential (primary) hypertension (principal); M10.00 Idiopathic gout, unspecified site
CPT/HCPCS: 80048; 84550

== ENCOUNTER 2022-12-07 10:26 | Day surgery (SDC) | payer BC, SELFPAY ==
--- NOTE | 2022-12-07 07:33 | W.PM.DSUDISC ---
Date of service: 12/07/22 Time of Service: 15:12 Discharge Plan Disposition Patient Disposition: Home Condition: Good Discharge Details Reason For Visit: Right index finger mass Attending Provider: Fabián Hughes Primary Care Provider: Triston Alba Home Meds and New Rx's Prescriptions: New hydrocodone-acetaminophen 5-325 mg tablet 1 tab PO Q4H PRN (Reason: pain) Qty: 10 0RF Continued omega-3 fatty acids [Fish Oil Concentrate] 1,000 mg capsule 1,000 mg PO DAILY lisinopril 20 mg tablet 20 mg PO DAILY metformin 500 mg tablet 1,000 mg PO DAILY aspirin [Adult Aspirin Regimen] 81 mg tablet,delayed release (DR/EC) 81 mg PO DAILY naproxen 250 mg tablet 250 - 500 mg PO BID PRNQty: 40 0RF Rx Instructions: take with a meal Discharge Instructions Additional Instructions: Finger Mass Excision Discharge Instructions Activity: You may use your fingers for light activity. You should limit any excessive motion or forceful gripping until the sutures have been removed. Dressings: You should keep the initial surgical dressing in place for at least 3 days. You may remove your dressings and get the wound wet after 3 days. You should keep the dressings and the wound clean at all times. You may keep the initial dressing in place until your follow-up but keep the wound covered with light gauze until the sutures are removed. Medications: - You should take Tylenol and Ibuprofen around the clock as prescribed or per certified dental assistant's recommendations. - You will have Hydrocodone for breakthrough pain. Follow-up: 7-10 days for wound check and suture removal. Stand Alone Forms: Anesthesia Discharge InsteHnrietta, Jeffrey Gifford ([facility]) Referrals: Fabián Hughes MD [ [facility] STAFF PHYSICIAN] - Activity:: Elevate Remove Dressings/Wound Care:: 72 hours Shower/Bathe:: 72 hours Diet:: As Tolerated Discharge Orders Discharge Orders: Discharge Order (Routine); Ordered 12/07/22 Ordered By: Arabella Bowser Discharge Data Discharge Date/Time-TO BE ENTERED AT DEPARTURE: 12/07/22 14:58
--- NOTE | 2022-12-07 09:49 | W.ANESPRE ---
General Info Date of Service Date Performed: 12/07/22 Height: 5 ft 10 in Weight: 102.058 kg Body Mass Index (BMI): 32.3 Surgical Procedure: Operation Date: 12/07/22 13:10 Proposed Procedure Side Surgeon p I&D RIF & Middle Phalanx and BX Right Fabián Hughes MD Meds Allergies and Home Medications Allergies Allergy/AdvReac Type Severity Reaction Status Date / Time atorvastatin AdvReac Intermediate Tachycardia Verified 12/07/22 10:50 Home Medication Medication Instructions Recorded lisinopril 20 mg tablet 20 mg PO DAILY 09/22/20 omega-3 fatty acids 1,000 mg 1,000 mg PO DAILY 09/22/20 capsule (Fish Oil Concentrate) metformin 500 mg tablet 1,000 mg PO DAILY 06/29/22 aspirin 81 mg tablet,delayed 81 mg PO DAILY 09/12/22 release (Adult Aspirin Regimen) naproxen 250 mg tablet 250 - 500 mg PO BID PRN #40 tabs 11/19/22 Current Visit Medications: Current Medications Generic Name Dose Route Start Last Admin Trade Name Freq PRN Reason Stop Dose Admin Acetaminophen 650 mg 12/07/22 07:32 Acetaminophen 325 Mg Tab PO Q4H PRN PRN Hydrocodone Bitart/Acetaminophen 0 tab 12/07/22 07:32 Hydrocodone 5/Acetaminophen 325 Tab PO Q3H PRN PRN Pain Ringer's Solution 1,000 mls @ 80 mls/hr 12/07/22 06:00 IV 01/05/23 23:59 INFUSION PRIYA Cefazolin Sodium/Dextrose 2 gm in 50 mls @ 100 mls/hr 12/07/22 06:00 Ancef Duplex IVPB 12/07/22 16:00 PREOP PRIYA IV Miscellaneous Supplies 1 each 12/07/22 06:00 Iv Access IV 01/05/23 23:59 DIRECTED PRIYA Sodium Chloride 0 ml 12/07/22 06:00 Normal Saline Flush 10 Ml Syr IV 01/05/23 23:59 PRN PRN Sodium Chloride 0 ml 12/07/22 06:00 Normal Saline 10 Ml Vial IJ 01/05/23 23:59 DIRECTED PRN Sterile Water 0 ml 12/07/22 06:00 Water,Injection,Sterile 10 Ml Vial IJ 01/05/23 23:59 DIRECTED PRN PFSH Active Problems Active Problems: Problem Status Onset Code Head injury S09.90XA Cervical radicular pain M54.12 Chest pain R07.9 Diabetes mellitus type 2 in obese E11.9, E66.9 Hypertension I10 Heavy alcohol consumption Z78.9 Obesity E66.9 Screening for colon cancer Z12.11 Tubular adenoma of colon D12.6 Hyperplastic colon polyp K63.5 Cervical spondylosis with radiculopathy 08/13/15 M47.22 Mass of right finger R22.31 Gouty arthritis of both knees M10.9 Medical History Medical History Actinic keratosis 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 atorvastatin caused his tachycadia Gout Hyperlipidemia Hypertension Pain of finger of right hand PTSD (post-traumatic stress disorder) Pt. states no procedural precautions necessary./ Tubulovillous adenoma of colon Type 2 diabetes mellitus Surgical History Surgical History Colonoscopy - MAC (11/16/17) Tobacco Smoking/Tobacco Use Status: Never Alcohol Alcohol Intake: current Alcohol intake frequency: 3 or more drinks per day Alcohol type: beer Substance Use Substance use: Never Substance use type: does not use Vital Signs and Lab Results Vital Signs Most Recent Vital Signs in EMR: Temp Pulse Resp BP Pulse Ox 35.9 C L 68 17 144/91 H 99 12/07/22 10:30 12/07/22 10:30 12/07/22 10:30 12/07/22 10:30 12/07/22 10:30 Lab Results Blood Type / Crossmatch: No Data to Display Complete Blood Count: No Data to Display Complete Metabolic Panel: Sodium 135 mmol/L (136-145) L 12/02/22 07:30 Potassium 4.9 mmol/L (3.5-5.1) 12/02/22 07:30 Chloride 100 mmol/L (98-107) 12/02/22 07:30 Carbon Dioxide 29.4 mmol/L (21.0-32.0) 12/02/22 07:30 BUN 12 mg/dL (7-18) 12/02/22 07:30 Creatinine 1.0 mg/dL (0.70-1.30) 12/02/22 07:30 Est GFR (CKD-EPI 2020) 88.33 (mL/min/1.73m2) 12/02/22 07:30 Calcium 9.6 mg/dL (8.5-10.1) 12/02/22 07:30 Glucose 144 mg/dL (74-106) H 12/02/22 07:30 Liver Function Panel: No Data to Display Coagulation Panel: No Data to Display Cardiac Panel: No Data to Display Arterial Blood Gas: No Data to Display Venous Blood Gas: No Data to Display Pancreas Panel: No Data to Display Thyroid Panel: No Data to Display Infectious Disease: No Data to Display Blood Cultures: No Data to Display Toxicology Panel: No Data to Display Imaging and Studies Imaging and Studies Study information below may be from another EMR and interpreted by another provider. Please see original notes in EMR for more complete details. Stress Test Summary: 12/2015: normal study. Echocardiogram Summary: 12/2015: LVEF 60-65%, normal RvFxn, no sig valve issues. Anesthesia Assessment and Plan Anesthesia History Personal History: No History of Anesthesia Complications Family History: No Family History of Anesthesia Complications Exercise Tolerance Exercise Tolerance: Metabolic Equivalents>4 Cardiac & Pulmonary Exam Cardiac Exam: Normal S1/S2 Heart Sounds Pulmonary Exam: Clear Bilateral Breath Sounds Implantable Cardiac Device Does patient have a Pacemaker or an ICD?: No Airway Exam Known Difficult Airway: No Mallampati Class: 2 Mouth Opening: Normal (> 3cm) Thyromental Distance: Greater than 3 cm Neck Range of Motion: Limited ROM Neck Circumference: Thick Teeth Condition: Normal Dentition ASA Classification ASA Score: ASA 2 Emergency Case?: No NPO Status NPO Status: NPO Clears >2 hours, Solids >8 hours Anesthesia Plan Resuscitation Status: Full Code Anesthesia Technique: General Anesthesia Airway Planned: Natural Airway Monitors Used: Standard Monitors Preoperative Comments:: 57 yo male for finger excision. was here with up recently, denies major change in health history. Sig PMHx: cervical spondylosis (neck feels ok today), TBI (listed on health history, but denies, does endorses PTSD - which is under control per him), HTN (lisinopril), DM2 (metformin), AV tabitha re-entry tachy (r/t atorvastatin, echo, ekg in 2016 unremarkable), former, daily EtOH. His hands do go numb at night while he is sleeping. Denies major cardiac, pulmonary, liver, kidney issues. denies any GERD. Previous Anes: - colo with prop, no airway x 2. - knee scope, glide 3 grade 1, easy mask. Plan: GA no airway.
[2022-12-07 10:30] VITALS: BP 144/91; PULSE 68; RESP 17; TEMP 35.9; O2SAT 99
[2022-12-07] MEDS: Lactated Ringers 1,000 ML 80 ML IV (11:10)
--- NOTE | 2022-12-07 12:00 | W.PREOPHP ---
Assessment and Plan Assessment and plan (1) Mass of right finger: Status: Acute Assessment and plan: Damian is a 57-year-old who has a mass about his right index finger. Given the persistence of the symptoms and his size I offered an excisional biopsy. There also appears to be some involvement of the middle phalanx of the index finger and therefore I would also perform a bone biopsy. The goal would be removing the prominence on the radial aspect of the index finger. I did discuss the surgery with him in detail. Please the previous office note for complete detailed history. I reviewed the risk to include bleeding, infection, pain, stiffness, damage nerves and vessels, damage to muscle and tendons, recurrence, need for repeat procedures. Despite these risk, he elects to proceed. History of Present Illness History of Present Illness Chief Complaint: Right Index Finger - Mass Narrative: Damian is a 57 year old who has a chronic mass of the right index finger. This continues to bother him. There was concern this could be a chronic infection from a previous open laceration. Given the persistence of the pain and the swelling and the size of the finger he is elected for excisional biopsy and is here today for that. Please do the previous office note for complete detailed history. Review of Systems All systems reviewed & are unremarkable except as noted in HPI and below PFSH All Active Problems Head injury (Acute) Cervical radicular pain (Acute) Chest pain (Acute) Diabetes mellitus type 2 in obese (Acute) Hypertension (Acute) Heavy alcohol consumption (Acute) Obesity (Chronic) Screening for colon cancer (Acute) Tubular adenoma of colon (Acute) Hyperplastic colon polyp (Acute) Cervical spondylosis with radiculopathy (Acute 08/13/15) Mass of right finger (Acute) Gouty arthritis of both knees (Acute) Medical History Actinic keratosis 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 atorvastatin caused his tachycadia Gout Hyperlipidemia Hypertension Pain of finger of right hand PTSD (post-traumatic stress disorder) Pt. states no procedural precautions necessary./ Tubulovillous adenoma of colon Type 2 diabetes mellitus Surgical History Colonoscopy - MAC (11/16/17) Social History Smoking/Tobacco Use Status: Never Smoking risk assessment performed?: Yes Alcohol Intake: current Alcohol Intake frequency: 3 or more drinks per day Alcohol type: beer Drug use: Never Substance use type: does not use Current gender identity: male Do you feel safe at home: Yes Do you feel safe in your relationship?: Yes Meds Allergies and Home Medications Allergies Allergy/AdvReac Type Severity Reaction Status Date / Time atorvastatin AdvReac Intermediate Tachycardia Verified 12/07/22 10:50 Home Medications Medication Instructions Recorded Confirmed Type lisinopril 20 mg tablet 20 mg PO DAILY 09/22/20 12/07/22 History omega-3 fatty acids 1,000 mg 1,000 mg PO DAILY 09/22/20 12/07/22 History capsule (Fish Oil Concentrate) metformin 500 mg tablet 1,000 mg PO DAILY 06/29/22 12/07/22 History aspirin 81 mg tablet,delayed 81 mg PO DAILY 09/12/22 12/06/22 History release (Adult Aspirin Regimen) naproxen 250 mg tablet 250 - 500 mg PO BID PRN #40 tabs 11/19/22 12/06/22 Rx Exam Const General: cooperative, healthy appearing, comfortable and no acute distress Resp Effort & Inspection: normal respiratory effort Auscultation: clear to auscultation bilaterally Cardio Rate: regular rate Rhythm: regular rhythm Extrem Other: Mass about the radial aspect of the right index finger. No skin changes per sensation intact light touch over the dorsal and palmar aspect. Results Last Vital Signs Temp 35.9 C L 12/07/22 10:30 Pulse 68 12/07/22 10:30 Resp 17 12/07/22 10:30 BP 144/91 H 12/07/22 10:30 Pulse Ox 99 12/07/22 10:30
[2022-12-07 12:26] VITALS: BMI 32.3
[2022-12-07] MEDS: ceFAZolin 2 GM/50 ML BAG IVPB (13:31)
[2022-12-07] MEDS: Bupivacaine 0.5% Pres-Free W/EPI 10 ML VIAL (13:39)
--- NOTE | 2022-12-07 13:53 | SKI_PTH ---
PATIENT: Damian Phillips LOC: [facility] U#:[id number] AGE/SX: 57/M ROOM: RE12/07/[address]: Fabián Hughes MD : [id number] BED: DIS: 12/07/2022 SPEC #: [id number] RECD: 12/07/22 18:53 STATUS: RADHA REQ #: [id number] RENARD: 12/07/22 13:[address]: Fabián Hughes DEPT: Surgical Specimen RECD BY: Alessia Weinstein ENTERED: 12/07/22 18:54 SP TYPE: KRYSTYNA GARCIA DR: Triston Alba Tissues: 1 - SKIN BIOPSY(SHAVE/PUNCH) Procedures: GROSS AND MICRO LEVEL 3 Comments: [id number]
[2022-12-07 14:10] VITALS: BP 135/84; PULSE 85; RESP 16; TEMP 36.1; O2SAT 96
[2022-12-07 14:37] VITALS: BP 146/84; PULSE 66; RESP 16; TEMP 36.4; O2SAT 100
--- NOTE | 2022-12-07 14:47 | W.ANESPOSTOP ---
Postoperative Evaluation Date, Time and Location Date Performed: 12/07/22 Time Performed: 14:53 Patient Location: Day Surgery Unit Vital Signs Most Recent Imported Vital Signs: Most Recent Vital Signs Temp Pulse Resp BP Pulse Ox 36.4 C L 66 16 146/84 H 100 12/07/22 14:37 12/07/22 14:37 12/07/22 14:37 12/07/22 14:37 12/07/22 14:37 Pain Score Most Recent Pain Score: Most Recent Pain Score Pain Level 0 12/07/22 14:37 Assessment Mental Status: Awake (Alert & Oriented to Patient Baseline) Airway and Respiratory Function: Patent airway with normal (patient baseline) respiratory exam Cardiovascular Function: Hemodynamically Stable Hydration Status: Adequately Hydrated Nausea & Vomiting: No Nausea or Vomiting Pain: Pain is tolerable per patient Peripheral Nerve Block: Patient did not receive a nerve block
--- NOTE | 2022-12-08 05:44 | ROE_ITS ---
Date of service: 12/07/22 Time of Service: 14:30 Operative Note Operative Note DATE OF PROCEDURE: 12/07/22 PRE-OP DIAGNOSIS: Right Index Finger Mass POST-OP DIAGNOSIS: other (Suspected Gout - RIF PIP and proximal phalanx) PROCEDURE: Excision of right index finger mass involving the bone of the proximal phalanx SURGEON: Fabián Hughes ANESTHESIA TYPE: General:No Airway Refer to Anesthesia Record ESTIMATED BLOOD LOSS: 0 PATHOLOGY: other (Pieces of the mass substance were sent to pathology) TOURNIQUET TIME: 8 COMPLICATIONS: None Patient was transported to: same day Patient's condition: stable Indications: Damian is a 57-year-old who has had swelling and pain over the radial aspect of the right index finger for some time. It has persisted, because restrictions in motion and causes pain with use and with direct pressure. Therefore, I offered an excisional biopsy. I reviewed the risk of the procedure to include bleeding, infection, pain, stiffness, recurrence, need for repeat procedures, damage nerves and vessels, damage to muscle and tendons. Despite these risks, he elected to proceed. Findings: The masslike structure, approximately 2 cm in length by 1 cm in width, was identified. Immediately once encountered it had a chalky resemblance of gout. It disintegrated into small particles into a liquefactive type consistency. A portion of this was sent to pathology. All this material which could be identified was removed. I did traced back into the radial-distal aspect of the proximal phalanx. The bone was debrided as well. Procedure Description: Damian was greeted in the preoperative holding area. His identity was confirmed the correct side was identified and marked. The consent was reviewed the patient and signed. Damian is taken back to the operating room. He is placed in the supine position with the right hand on a hand table. All bony prominences well-padded. Prophylactic antibiotics are necessary given the clean hand procedure. The right hand was prepped with ChloraPrep and draped in a standard fashion. A timeout was performed for safe surgery. A digital nerve block was performed with 0.25% bupivacaine. The proposed parasagittal incision site was marked overlying the mass dorsal to the flexor skin folds over the radial side of the index finger. The finger was exsanguinated with direct pressure and a [place] drain was placed the base of the finger for blood control. This longitudinal type incision was then made. Soft tissues were dissected bluntly after the skin was incised. The prominence of the mass was identifiable quite quickly. There is a white coloration to it. It was approximately 2 cm in length and 1 cm in width. Once was identified the smaller capsule which was on top of this was incised and immediately there is a chalky substance which protruded out of this area. It had a thickened liquid consistency. 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 Large sections of this material was not sent to pathology. It involved some of the lateral band on this radial side. It also tracked back to the distal aspect of the proximal phalanx. All this material was debrided. It did not seem to violate the PIP joint as a capsule the PIP joint was identifiable and intact. I used a curette and a [place] to help debride some of the soft tissues of any of this material. I also used a curette to debride the proximal phalanx. Any t issue which appeared to be completely invested with this material was removed. The wound was then thoroughly irrigated. Once again, I removed as much debris as possible. I then closed the wound with 4-0 nylon in interrupted fashion. This was dressed with Xeroform, 4 x 4's, conformer dressing. The Mag drain was released. Blood flow return to the finger. At the end the case all counts were correct. Pathology sample was sent. He tolerated the procedure well and was transferred back to the day surgery area in stable condition.
== END 2022-12-07 14:58 | disposition home or self-care (01) ==
PROVIDERS: PCP Internal Medicine; Visit Provider Student in an Organized Health Care Education/Training Program
PROC: (CPT 26115; principal; 2022-12-07 13:00)
DX: M1A.9XX1 Chronic gout, unspecified, with tophus (tophi) (principal); E78.5 Hyperlipidemia, unspecified; E11.9 Type 2 diabetes mellitus without complications; Z79.84 Long term (current) use of oral hypoglycemic drugs; L98.8 Other specified disorders of the skin and subcutaneous tissue
CPT/HCPCS: 26115; 26210; 88304; 88305; J0690; J2704

== ENCOUNTER 2023-01-03 12:15 | Outpatient (REF) | payer BC, SELFPAY ==
[2023-01-03 19:32] LABS: Uric Acid 6.3 mg/dL (3.5-7.2)
== END 2023-01-03 12:16 | disposition home or self-care (01) ==
LOC: NCHCN 12:15
PROVIDERS: PCP Internal Medicine; Visit Provider Nurse Practitioner Family
DX: M10.00 Idiopathic gout, unspecified site (principal)
CPT/HCPCS: 84550

== ENCOUNTER 2023-03-01 15:25 | Outpatient (REF) | payer BC, SELFPAY ==
[2023-03-01 18:48] LABS: Anion Gap 7.3 mmol/L (3-11); BUN 13 mg/dL (7-18); CO2 27.7 mmol/L (21.0-32.0); Calcium 10.1 mg/dL (8.5-10.1); Chloride 100 mmol/L (98-107); Estimated GFR 88.33 (mL/min/1.73m2); Glucose 110 mg/dL (74-106); Potassium 4.9 mmol/L (3.5-5.1); Sodium 135 mmol/L (136-145)
== END 2023-03-01 15:26 | disposition home or self-care (01) ==
LOC: NCHCN 15:25
PROVIDERS: PCP Internal Medicine; Visit Provider Nurse Practitioner Family
DX: M10.00 Idiopathic gout, unspecified site (principal)
CPT/HCPCS: 80048; 84550

== ENCOUNTER 2023-11-23 15:52 | Outpatient (REF) | payer BC, SELFPAY ==
[2023-11-23 20:59] LABS: ALT 82 U/L (16-63); AST 51 U/L (15-37); Albumin 3.9 g/dL (3.4-5.0); Alkaline Phosphatase 45 U/L (46-116); Anion Gap 9.7 mmol/L (3-11); BUN 9 mg/dL (7-18); Bilirubin, Total 0.5 mg/dL (0.2-1.0); CO2 25.3 mmol/L (21.0-32.0); CREATININE 0.9 mg/dL (0.70-1.30); Calcium 9.3 mg/dL (8.5-10.1); Chloride 101 mmol/L (98-107); Estimated GFR 99.62 (mL/min/1.73m2); Glucose 113 mg/dL (74-106); Potassium 4.7 mmol/L (3.5-5.1); Sodium 136 mmol/L (136-145); Total Protein 7.6 g/dL (6.4-8.2); Uric Acid 5.7 mg/dL (3.5-7.2)
[2023-11-23 23:06] LABS: Calculated LDL 122 mg/dL (<100); Cholesterol 199 mg/dL (<200); HDL Cholesterol 61 mg/dL (40-60); Triglyceride 82 mg/dL (<150)
== END 2023-11-23 15:53 | disposition home or self-care (01) ==
LOC: NCHCN 15:52
PROVIDERS: PCP Internal Medicine; Visit Provider Nurse Practitioner Family
DX: E11.9 Type 2 diabetes mellitus without complications (principal); M1A.0611 Idiopathic chronic gout, right knee, with tophus (tophi)
CPT/HCPCS: 80053; 80061; 83036; 84550

== ENCOUNTER 2023-12-12 14:57 | Outpatient (REF) | payer BC, SELFPAY ==
[2023-12-12 19:17] LABS: ALT 100 U/L (16-63); AST 66 U/L (15-37); Alkaline Phosphatase 47 U/L (46-116); Bilirubin, Total 0.6 mg/dL (0.2-1.0); Total Protein 7.7 g/dL (6.4-8.2)
[2023-12-12 19:35] LABS: Bilirubin, Direct 0.1 mg/dL (0.0-0.2)
== END 2023-12-12 14:58 | disposition home or self-care (01) ==
LOC: NCHCN 14:57
PROVIDERS: PCP Nurse Practitioner Family; Visit Provider Nurse Practitioner Family
DX: R74.01 Elevation of levels of liver transaminase levels (principal)
CPT/HCPCS: 80076

== ENCOUNTER 2024-01-16 10:00 | Outpatient (REF) | payer BC, SELFPAY ==
[2024-01-16 19:55] LABS: ALT 111 U/L (16-63); AST 66 U/L (15-37); Alkaline Phosphatase 54 U/L (46-116); Bilirubin, Direct 0.2 mg/dL (0.0-0.2); Bilirubin, Total 0.6 mg/dL (0.2-1.0); Total Protein 7.9 g/dL (6.4-8.2)
== END 2024-01-16 10:01 | disposition home or self-care (01) ==
LOC: NCHCN 10:00
PROVIDERS: PCP Nurse Practitioner Family; Referring Provider Nurse Practitioner Family; Visit Provider Nurse Practitioner Family
DX: R74.01 Elevation of levels of liver transaminase levels (principal)
CPT/HCPCS: 80076

== ENCOUNTER 2024-01-29 08:44 | Emergency (ER) | payer BC, SELFPAY ==
[2024-01-29] VITALS (53 sets, daily range): BP systolic 157–169; BP diastolic 88–91; PULSE 59–71; RESP 14–29; TEMP 36.7–36.9; O2SAT 95–99
--- NOTE | 2024-01-29 08:59 | ED.GENADUL_ITS ---
Discharge Plan Disposition Patient Disposition: Home Condition: Stable Discharge Details Clinical Impression: Right inguinal hernia Primary Care Provider: Kristy Mtz ED Provider: Neil Miranda Home Meds and New Rx's Prescriptions: Continued allopurinol 100 mg tablet 100 mg PO DAILY omega-3 fatty acids [Fish Oil Concentrate] 1,000 mg capsule 1,000 mg PO DAILY lisinopril 20 mg tablet 20 mg PO DAILY metformin 500 mg tablet 1,000 mg PO DAILY aspirin [Adult Aspirin Regimen] 81 mg tablet,delayed release (DR/EC) 81 mg PO DAILY losartan 50 mg tablet 50 mg PO DAILY Patient Comments: TAKE 1 TABLET BY MOUTH EVERY MORNING penicillin V potassium 500 mg tablet 500 mg PO TID Patient Comments: TAKE ONE TABLET BY MOUTH THREE TIMES A DAY UNTIL GONE Discharge Instructions Instructions: Inguinal Hernia (ED) Additional Instructions: You were seen in the emergency department for your right lower quadrant abdominal pain, there is no sign of appendicitis or infection, you do have a right inguinal hernia which is containing fat and not bowel. We educated you on how to try and reduce this at home, you are having intermittent symptoms likely with some fat hernia protruding into the inguinal canal intermittently. You should follow-up with your primary care provider for a referral to general surgery practice for elective hernia repair but return immediately to the ED for severe increase in pain especially with fever and large bulging especially bulging protruding all the way into the scrotum. Any inability of passing gas or having bowel movements. Please use therapeutic dosing of Tylenol (acetamenophen) & Advil (ibuprofen) in an alternating fashion as follows: Take 1000mg of Tylenol every 6 hours without missing doses- that is 4 times per day. Snf in between the Tylenol dosings, take 400-600mg of Advil also on a 6 hour schedule, that is also 4 times per day. The daily maximum dosing of Tylenol is 4000mg, and the daily maximum dosing of Advil is 2400mg. This is safe to do for weeks. Please note that some common cold medications & prescription pain medications may contain acetamenophen and you need to read OTC drug labels and factor that in to maximum daily dosings. Referrals: Kristy Mtz [Primary Care Provider] - HPI General Date/Time Provider Initiated Documentation: 01/29/24 08:59 . HPI Narrative: 58 year-old male presents to ED today by POV/ambulating with his with a chief complaint of RLQ abdominal pains with onset 2-3 days ago, has been increasing in duration and intensity. Quality described as sharp stabbing pain in the RLQ, that is more severe and prolonged this morning, no radiation to fever, complete anorexia, nausea/vomiting, does endorse some mild pain spreading down the groin but denies scrotal swelling or pain. Severity is described as 8/10. Palliating factors include nothing specific attempted. Provoking factors include nothing specific. Events leading up to the incident/Associated Symptoms: Patient denies history of abdominal surgery. Patient not anticoagulated. Related Data Home Medications Medication Instructions Recorded Confirmed lisinopril 20 mg tablet 20 mg PO DAILY 09/22/20 01/29/24 omega-3 fatty acids 1,000 mg 1,000 mg PO DAILY 09/22/20 01/29/24 capsule (Fish Oil Concentrate) metformin 500 mg tablet 1,000 mg PO DAILY 06/29/22 01/29/24 aspirin 81 mg tablet,delayed 81 mg PO DAILY 09/12/22 01/29/24 release (Adult Aspirin Regimen) allopurinol 100 mg tablet 100 mg PO DAILY 12/29/22 01/29/24 losartan 50 mg tablet 50 mg PO DAILY 01/29/24 01/29/24 penicillin V potassium 500 mg 500 mg PO TID 01/29/24 01/29/24 tablet Allergies Allergy/AdvReac Type Severity Reaction Status Date / Time atorvastatin AdvReac Intermediate Tachycardia Verified 01/29/24 08:51 General Stated Complaint: Abd Prob MOI: 3 Review of Systems All systems reviewed & are unremarkable except as noted in HPI and below Exam Narrative Exam Narrative: GENERAL APPEARANCE: Well-nourished, non-toxic, awake and alert, atraumatic, no acute distress. SKIN: Warm, pink, dry, intact, without rashes/lesions/ulcerations. HEAD: Normocephalic, atraumatic, normal hair distribution for gender/age. EYES: Pupils PERRLA, EOMs intact without nystagmus, normal conjunctiva, no exudates on lids/lashes. ENT: Nares patent, no circumoral cyanosis, no facial swelling NECK: Supple, trachea midline, painless cervical ROM. LUNGS/CHEST: Lungs CTA bilaterally- no rhonchi/rales/wheezes diffusely, non- labored respirations, normal A/P diameter, symmetrical expansion, no chest wall deformity HEART (CV/PV): Regular rate and rhythm without murmur, no peripheral edema, no JVD. ABDOMEN: Soft, non-distended, no guarding, RLQ tenderness at McBurney's point with rebound tenderness, +Psoas and obturator, no inguinal bulge palpated at R inguinal canal. MSK: Normal ROM, no swelling/deformity to bilateral UEs or LEs, moving all extremities without weakness, no cyanosis, spine midline without tenderness, normal curvature. NEURO: Mental Status AAOx4 - alert to person, place, time, events No facial droop, no forehead involvement. Motor: No focal weakness - strength 5/5 in bilateral UEs and LEs, proximal and distal, symmetric. Sensory: sensation intact to light touch globally. Gait normal: patient ambulated without ataxia into ED room. PSYCH: euthymic, cooperative, pleasant, appropriate speech Course Vital Signs Vital signs: Vital Signs Temperature 36.9 C 01/29/24 08:48 Pulse 70 01/29/24 08:48 Respiratory Rate 16 01/29/24 08:48 Blood Pressure 169/88 H 01/29/24 08:48 Pulse Oximetry 99 01/29/24 08:48 Temperature 36.9 C 01/29/24 08:48 Temperature Source Temporal Artery Scan 01/29/24 08:48 Pulse 70 01/29/24 08:48 Respiratory Rate 16 01/29/24 08:48 Respiratory Effort Normal, Non-Labored 01/29/24 08:53 Blood Pressure 169/88 H 01/29/24 08:48 Blood Pressure Position Sitting 01/29/24 08:48 Pulse Oximetry 99 01/29/24 08:48 Oxygen Delivery Method Room Air 01/29/24 08:48 Oxygen Flow Rate 0 01/29/24 08:48 Medical Decision Making This dictation utilizes [id number] dictation software and may contain unedited grammatical errors. 58 y/o M presents to ED today with a chief complaint of RLQ abdominal pain increasing in severity and duration over the past 2-3 days. Denies nausea/vomiting, states severe stabbing pains. Patient denies prior abdominal surgeries. Patients' medical history: past heavy ETOH use, gout, t2DM. Family and social history: noncontributory. Pertinent exam findings / vital signs include right lower quadrant abdominal tenderness at McBurney's point with rebound tenderness, positive psoas and obturator signs, nontoxic vitals, benign cardiopulmonary exam. Differential / pathologies of concern include Appendicitis, SBO, Hernia, Incarceration, Gas Pains. Diagnostic studies of: -CBC, CMP, Lactate, Lipase, Procalcitonin, UA, Magnesium, CT ABD/Pelvis w Contrast. CBC benign, magnesium is low and I repleted by IV and p.o. encouraged OTC supplements Lactate lipase negative Procalcitonin negative UA benign CT shows no acute infectious etiology, does show right inguinal fat-containing hernia which was reduced by placing the patient in Trendelenburg position Interventions of: -trendelenberg reduction. ED Course/Assessment/Plan: 58-year-old male presents with right lower quadrant abdominal pain, on CT there is a fat-containing inguinal hernia, there is no bowel incarceration, the patient is afebrile and nontoxic and has benign laboratory workup for infectious etiology, counseled him on following up with PCP for recheck of magnesium level which was found to be low but repleted IV and p.o. here, counseled on referral to general surgery practice for possible elective hernia repair or strict return criteria for severe onset of right lower quadrant pain, complete constipation of flatus and stool, fever, nausea vomiting. Findings not consistent with appendicitis, perforated viscus, incarceration, SBO. Disposition of Right Inguinal Hernia. Patient verbalized understanding of the plan and return to ED criteria and engaged in shared decision making. Medical Records Medical records reviewed: Yes I reviewed the patient's medical records. Imaging Data Radiologic Study: Attestation: I personally reviewed and interpreted this imaging study as follows: Imaging: CT Scan Radiologist's impression: Exam: CT Abdomen And Pelvis With Contrast Exam date and time: 01/29/2024 9:54 AM Age: 58 years old Clinical indication: Pain; Other: Rlq tenderness at mcburney's point TECHNIQUE: Imaging protocol: Computed tomography of the abdomen and pelvis with contrast. Contrast material: OMNIPAQUE 350; Contrast volume: 100 ml; Contrast route: INTRAVENOUS (IV); COMPARISON: MR LOWER JOINT LT WO 09/03/2022 8:39 AM FINDINGS: Heart: There are mitral valve coarse calcifications. Aortic valve calcifications. Liver: Mild hepatic steatosis. No mass. Gallbladder and bile ducts: Normal. No calcified stones. No ductal dilation. Pancreas: Normal. No ductal dilation. Spleen: Normal. No splenomegaly. Adrenal glands: Normal. No mass. Kidneys and ureters: Normal. No hydronephrosis. Stomach and bowel: There is diverticulosis of the sigmoid colon and descending colon with no changes of diverticulitis. Appendix: No evidence of appendicitis. Intraperitoneal space: Unremarkable. No free air. No significant fluid collection. Vasculature: There are vascular calcifications. Lymph nodes: Unremarkable. No enlarged lymph nodes. Urinary bladder: There is bladder wall thickening. Reproductive: Unremarkable as visualized. Bones/joints: There is moderate degenerative disease of bilateral hip joints. Mild degenerative disease of the symphysis pubis. There is a mild curvature of the lumbar spine convex to the right. There is moderate degenerative disease of the lumbar spine, most pronounced at L5-S1 with disc space narrowing, anterior and posterior osteophytes. There is bilateral L5 pars defects with grade 1 spondylolisthesis of L5 over S1. Soft tissues: Small fat containing right inguinal hernia. There is a fat containing umbilical hernia. IMPRESSION: 1. Bladder wall thickening to be correlated with urinalysis to rule out urinary tract infection. 2. Diverticulosis with no changes of diverticulitis. Dictated and Authenticated by: Jose Alberto Curiel MD. Ordering:MAUREEN Trejo MD Lab Data Lab results reviewed: Yes I reviewed the patient's lab results. Labs: Laboratory Tests Range/Units 01/29/24 01/29/24 08:59 09:13 WBC (4.4-10.8) 10^3/uL 5.16 RBC (4.36-5.78) 10^6/uL 4.26 L Hgb (13.5-17.5) g/dL 15.0 Hct (40.0-50.0) % 41.9 MCV (80-95) fL 98 H MCH (27.0-33.0) pg 35.2 H MCHC (32.0-36.0) % 35.8 RDW (11.8-14.1) % 12.3 Plt Count (130-400) 10^3/uL 182 MPV (8.0-11.0) fL 9.7 Immature Gran % 0.2 Neutrophils % 66.0 Lymphocytes % 16.5 Monocytes % 12.8 Eosinophils % 3.9 Basophils % 0.6 Nucleated RBC % (0.0-0.3) % 0.0 Absolute Neutrophils (1.2-6.7) 10^3/uL 3.41 Absolute Lymphocytes (1.2-3.4) 10^3/uL 0.85 L Absolute Monocytes (0.1-0.8) 10^3/uL 0.66 Absolute Eosinophils (0.0-0.7) 10^3/uL 0.20 Absolute Basophils (0.0-0.2) 10^3/uL 0.03 ESR (0-20) mm/hr 1 VBG Lactate (0.6-1.4) mmol/L 1.0 Sodium (136-145) mmol/L 137 Potassium (3.5-5.1) mmol/L 5.2 H Chloride (98-107) mmol/L 99 Carbon Dioxide (21.0-32.0) mmol/L 28.0 Anion Gap (3-11) mmol/L 10.0 BUN (7-18) mg/dL 12 Creatinine (0.70-1.30) mg/dL 1.1 Est GFR (CKD-EPI 2020) (mL/min/1.73m2) 78.30 Glucose (74-106) mg/dL 129 H Calcium (8.5-10.1) mg/dL 9.8 Magnesium (1.8-2.4) mg/dL 1.3 L Total Bilirubin (0.2-1.0) mg/dL 0.9 AST (15-37) U/L 81 H ALT (16-63) U/L 125 H Alkaline Phosphatase (46-116) U/L 54 C-Reactive Protein (<or=0.5) mg/dL < 0.50 Total Protein (6.4-8.2) g/dL 8.0 Albumin (3.4-5.0) g/dL 4.3 Lipase (16-77) U/L 34 Procalcitonin ng/mL < 0.1 Urine Color (Yellow) Yellow Urine Clarity (Clear) Clear Urine pH (5-8) 6.0 Ur Specific [place] (1.005-1.025) 1.015 Urine Protein (Neg-Trace) mg/dL Negative Urine Ketones (Negative) mg/dL Trace H Urine Blood (Negative) Negative Urine Nitrite (Negative) Negative Urine Bilirubin (Negative) Negative Urine Urobilinogen (Up to 0.2) mg/dL 1.0 H Ur Leukocyte Esterase (Negative) Negative Urine Glucose (Negative) mg/dL Negative Quality:SDOH Health Related Social Needs: No Data to Display PFSH All Active Problems (Updated 01/29/24 @ 11:54 by DESHAWN Tyson) Right inguinal hernia (Acute) Gouty arthritis of right hand (Acute) Head injury (Acute) Cervical radicular pain (Acute) Chest pain (Acute) Diabetes mellitus type 2 in obese (Acute) Hypertension (Acute) Heavy alcohol consumption (Acute) Obesity (Chronic) Screening for colon cancer (Acute) Tubular adenoma of colon (Acute) Hyperplastic colon polyp (Acute) Cervical spondylosis with radiculopathy (Acute 08/13/15) Mass of right finger (Acute) Surgical excision of gout from Right Index finger DOS: 12/07/2022 Gouty arthritis of both knees (Acute) Medical History Actinic keratosis 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 atorvastatin caused his tachycadia Gout Hyperlipidemia Hypertension Pain of finger of right hand PTSD (post-traumatic stress disorder) Pt. states no procedural precautions necessary./ Tubulovillous adenoma of colon Type 2 diabetes mellitus Surgical History Colonoscopy - [facility] (11/16/17) Social History Smoking/Tobacco Use Status: Never Smoking risk assessment performed?: Yes Alcohol Intake: current Alcohol Intake frequency: 3 or more drinks per day Alcohol type: beer Drug use: Never Substance use type: does not use Current gender identity: male Do you feel safe at home: Yes Do you feel safe in your relationship?: Yes PAWSS Have you Been Recently Intoxicated or Drunk Within the Last 30 days?: No Have you Ever Experienced Previous Episodes of Alcohol Withdrawal?: No Have you ever Experienced Withdrawal Seizures?: No Have you ever Experienced Delirium Tremens(DT)s?: No Have you ever undergone Alcohol Rehabilitation Treatment (i.e, inpt ot outpatient treatment programs)?: No Have you ever Experienced Blackouts?: No Have you ever Combined Alcohol with other Downers within the last 90 days?: No Have you ever Combined Alcohol with any other Substance of Abuse during the last 90 days?: No Positive Blood Alcohol level on Presentation? [PCS.BAL]: No Evidence of Increased Autonomic Activity (i.e. HR>120, tremor, sweating, agitation, nausea)?: No Result: 0
--- NOTE | 2024-01-29 09:00 | DI.CT_ITS ---
Exam(s) CT ABDOMEN PELVIS W EXAM: CT ABDOMEN PELVIS W CLINICAL HISTORY: RLQ tenderness at McBurney's point. TECHNIQUE: Imaging Protocol: Axial computed tomography images with coronal and sagittal reformatted images were created and reviewed CONTRAST MATERIAL: Intravenous: Omnipaque 350 Contrast volume:100 ml Oral: no COMPARISON: No exams were available for comparison FINDINGS: ABDOMEN and PELVIS: Lung Bases: No acute findings. Liver: Severe hepatic steatosis. Enlarged. No measurable mass. Gallbladder and biliary tract: No radiodense calculus or dilation. Pancreas: Normal density. No abnormal calcifications or inflammatory process. No evidence of mass. Spleen: Normal. Kidneys: Normal size, contour and axis. No radiodense stones. No obstructive uropathy. No suspicious masses seen. Adrenal glands: No masses seen. Vasculature: Abdominal aorta non-dilated. Soft tissues: Small fatty containing right inguinal hernia. Small fatty containing umbilical hernia. Bladder: Marked circumferential wall thickening. No calculi.No focal mass. Bowel: Diverticulosis of the sigmoid. No diverticulitis. No obstruction. No bowel wall thickening . Appendix normal. Peritoneal cavity: No ascites. No focal collection or mesenteric inflammatory response. Bones: Degenerative changes greatest at L5-S1. Mild scoliosis. Bilateral L5 pars defects with mild spondylolisthesis at L5-S1. Reproductive organs: Prostate mildly enlarged, impressing on the base of the bladder. Lymph nodes: Unremarkable. IMPRESSION:: Diffuse bladder wall thickening. No evidence of hydronephrosis. No evidence of appendicitis. RADIATION DOSE DELIVERED: 1,233.58mGy.cm Total DLP DATA REPOSITORY: All CT scans at this facility are submitted to the National Radiology Data Registry (NRDR) Dose Index Registry (DIR) with the [employer] (ACR). RADIATION OPTIMIZATION: All CT scans at this facility use at least one of these dose optimization te chniques: automated exposure control; mA and/or kV adjustment per patient size (includes targeted exa ms where dose is matched to clinical indication); or iterative reconstruction.
[2024-01-29 09:12] LABS: Bilirubin Negative (Negative); Blood Negative (Negative); Clarity Clear (Clear); Glucose Negative (Negative); Ketones Trace mg/dL (Negative); Leukocyte Esterase Negative (Negative); Nitrite Negative (Negative); Specific Gravity 1.015 (1.005-1.025)
[2024-01-29 09:19] LABS: Abs Immature Grans 0.01 10^3/uL (0.0-0.06); Absolute Basophil Count 0.03 10^3/uL (0.0-0.2); Absolute Lymphocyte Count 0.85 10^3/uL (1.2-3.4); Absolute Monocyte Count 0.66 10^3/uL (0.1-0.8); Absolute Neutrophil Count 3.41 10^3/uL (1.2-6.7); Basophils % 0.6; Eosinophils % 3.9; HCT 41.9 % (40.0-50.0); Immature Grans % 0.2; Lymphocytes % 16.5; MCH 35.2 pg (27.0-33.0); MCHC 35.8 % (32.0-36.0); MCV 98 fL (80-95); MPV 9.7 fL (8.0-11.0); Monocytes % 12.8; Platelet Count 182 10^3/uL (130-400); RBC 4.26 10^6/uL (4.36-5.78); RDW 12.3 % (11.8-14.1); RDW-SD 44.4 fL; WBC 5.16 10^3/uL (4.4-10.8)
[2024-01-29 09:21] LABS: ESR 1 mm/hr (0-20)
[2024-01-29 09:35] LABS: ALT 125 U/L (16-63); AST 81 U/L (15-37); Albumin 4.3 g/dL (3.4-5.0); Alkaline Phosphatase 54 U/L (46-116); BUN 12 mg/dL (7-18); Bilirubin, Total 0.9 mg/dL (0.2-1.0); C-Reactive Protein < 0.50 mg/dL (<or=0.5); CREATININE 1.1 mg/dL (0.70-1.30); Calcium 9.8 mg/dL (8.5-10.1); Chloride 99 mmol/L (98-107); Glucose 129 mg/dL (74-106); Lipase 34 U/L (16-77); Magnesium 1.3 mg/dL (1.8-2.4); Potassium 5.2 mmol/L (3.5-5.1); Sodium 137 mmol/L (136-145)
[2024-01-29] MEDS: Normal Saline - Diluent 50 ML VIAL IJ (09:50)
[2024-01-29] MEDS: Omnipaque 350 MG/ML 100 ML BTL IJ (09:51)
[2024-01-29] MEDS: Normal Saline Flush 10 ML SYR IVP (09:52)
[2024-01-29 09:55] LABS: Procalcitonin < 0.1 ng/mL
--- NOTE | 2024-01-29 10:23 | DI.VRAD_ITS ---
PROCEDURE INFORMATION: Exam: CT Abdomen And Pelvis With Contrast Exam date and time: 01/29/2024 9:54 AM Age: 58 years old Clinical indication: Pain; Other: Rlq tenderness at mcburney's point TECHNIQUE: Imaging protocol: Computed tomography of the abdomen and pelvis with contrast. Contrast material: OMNIPAQUE 350; Contrast volume: 100 ml; Contrast route: INTRAVENOUS (IV); COMPARISON: MR LOWER JOINT LT WO 09/03/2022 8:39 AM FINDINGS: Heart: There are mitral valve coarse calcifications. Aortic valve calcifications. Liver: Mild hepatic steatosis. No mass. Gallbladder and bile ducts: Normal. No calcified stones. No ductal dilation. Pancreas: Normal. No ductal dilation. Spleen: Normal. No splenomegaly. Adrenal glands: Normal. No mass. Kidneys and ureters: Normal. No hydronephrosis. Stomach and bowel: There is diverticulosis of the sigmoid colon and descending colon with no changes of diverticulitis. Appendix: No evidence of appendicitis. Intraperitoneal space: Unremarkable. No free air. No significant fluid collection. Vasculature: There are vascular calcifications. Lymph nodes: Unremarkable. No enlarged lymph nodes. Urinary bladder: There is bladder wall thickening. Reproductive: Unremarkable as visualized. Bones/joints: There is moderate degenerative disease of bilateral hip joints. Mild degenerative disease of the symphysis pubis. There is a mild curvature of the lumbar spine convex to the right. There is moderate degenerative disease of the lumbar spine, most pronounced at L5-S1 with disc space narrowing, anterior and posterior osteophytes. There is bilateral L5 pars defects with grade 1 spondylolisthesis of L5 over S1. Soft tissues: Small fat containing right inguinal hernia. There is a fat containing umbilical hernia. IMPRESSION: 1. Bladder wall thickening to be correlated with urinalysis to rule out urinary tract infection. 2. Diverticulosis with no changes of diverticulitis. Dictated and Authenticated by: Jose Alberto Curiel MD. Ordering:MAUREEN Trejo MD
[2024-01-29] MEDS: Magnesium Oxide 400 MG TAB PO (10:55)
[2024-01-29] MEDS: MAGNESIUM SULFATE 2 GM/50 ML BAG IVPB (10:56)
== END 2024-01-29 12:51 | disposition home or self-care (01) ==
PROVIDERS: Emergency Provider Physician Assistant; PCP Nurse Practitioner Family
DX: R10.31 Right lower quadrant pain (principal); K40.90 Unilateral inguinal hernia, without obstruction or gangrene, not specified as recurrent; I10 Essential (primary) hypertension; E78.5 Hyperlipidemia, unspecified; E11.9 Type 2 diabetes mellitus without complications; Z79.82 Long term (current) use of aspirin; Z79.84 Long term (current) use of oral hypoglycemic drugs
CPT/HCPCS: 36415; 80053; 83690; 84145; 85652; 96365; 96366; 99285; 74177; 81003; 83605; 83735; 85025; 86140; 99284; J3475; J3490

== ENCOUNTER 2024-03-07 14:27 | Outpatient (CLI) | payer BC, SELFPAY ==
[2024-03-07 22:30] LABS: PSA, Screening 2.9 ng/mL (<=3.5)
== END 2024-03-07 14:28 | disposition home or self-care (01) ==
LOC: LBO 14:27
PROVIDERS: PCP Nurse Practitioner Family; Visit Provider Nurse Practitioner Gerontology
DX: R39.9 Unspecified symptoms and signs involving the genitourinary system (principal)
CPT/HCPCS: 36415; 84153

== ENCOUNTER 2025-02-19 13:21 | Outpatient (REF) | payer BC, SELFPAY ==
[2025-02-19 20:54] LABS: ALT 56 U/L (16-63); AST 39 U/L (15-37); Albumin 4.2 g/dL (3.4-5.0); Alkaline Phosphatase 54 U/L (46-116); Anion Gap 10.3 mmol/L (3-11); BUN 7 mg/dL (7-18); Bilirubin, Total 0.7 mg/dL (0.2-1.0); CO2 24.7 mmol/L (21.0-32.0); CREATININE 0.8 mg/dL (0.70-1.30); Calcium 9.9 mg/dL (8.5-10.1); Chloride 104 mmol/L (98-107); Estimated GFR 102.58 (mL/min/1.73m2); Glucose 131 mg/dL (74-106); Potassium 4.6 mmol/L (3.5-5.1); Sodium 139 mmol/L (136-145); Total Protein 7.9 g/dL (6.4-8.2)
== END 2025-02-19 13:22 | disposition home or self-care (01) ==
LOC: NCHCN 13:21
PROVIDERS: PCP Nurse Practitioner Family; Visit Provider Nurse Practitioner Family
DX: I10 Essential (primary) hypertension (principal)
CPT/HCPCS: 80053

== ENCOUNTER 2025-09-10 10:32 | Outpatient (REF) | payer BC, SELFPAY ==
[2025-09-10 20:30] LABS: ALT 64 U/L (16-63); AST 49 U/L (15-37); Albumin 4.1 g/dL (3.4-5.0); Alkaline Phosphatase 55 U/L (46-116); Anion Gap 8.5 mmol/L (3-11); BUN 9 mg/dL (7-18); Bilirubin, Total 0.7 mg/dL (0.2-1.0); CO2 29.5 mmol/L (21.0-32.0); Calcium 9.9 mg/dL (8.5-10.1); Chloride 96 mmol/L (98-107); Estimated GFR 98.38 (mL/min/1.73m2); Glucose 127 mg/dL (74-106); Potassium 4.6 mmol/L (3.5-5.1); Sodium 134 mmol/L (136-145); Total Protein 7.9 g/dL (6.4-8.2); Uric Acid 4.7 mg/dL (3.5-7.2)
== END 2025-09-10 10:33 | disposition home or self-care (01) ==
LOC: NCHCN 10:32
PROVIDERS: PCP Nurse Practitioner Family; Visit Provider Nurse Practitioner Family
DX: E11.9 Type 2 diabetes mellitus without complications (principal); M10.00 Idiopathic gout, unspecified site
CPT/HCPCS: 80053; 84550

== ENCOUNTER 2025-11-18 11:38 | Outpatient (REF) | payer BC, SELFPAY ==
[2025-11-18 19:18] LABS: HCT 45.5 % (40.0-50.0); HGB 16.0 g/dL (13.5-17.5); MCH 34.6 pg (27.0-33.0); MCHC 35.2 % (32.0-36.0); MCV 99 fL (80-95); MPV 10.2 fL (8.0-11.0); Platelet Count 224 10^3/uL (130-400); RBC 4.62 10^6/uL (4.36-5.78); RDW 11.8 % (11.8-14.1); RDW-SD 42.9 fL; WBC 6.08 10^3/uL (4.4-10.8)
[2025-11-18 19:39] LABS: ALT 39 U/L (10-49); AST 38 U/L (<34); Albumin 4.6 g/dL (3.2-5.0); Alkaline Phosphatase 55 U/L (46-116); Anion Gap 8.4 mmol/L (3-11); BUN 12 mg/dL (9-23); Bilirubin, Total 0.9 mg/dL (0.2-1.2); CO2 28.6 mmol/L (20.0-31.0); Calcium 10.0 mg/dL (8.3-10.6); Chloride 100 mmol/L (98-107); Cholesterol 171 mg/dL (<200); Glucose 131 mg/dL (74-106); HDL Cholesterol 64 mg/dL (>or=40); Potassium 4.1 mmol/L (3.5-5.1); Sodium 137 mmol/L (136-145); Total Protein 7.6 g/dL (5.7-8.2)
[2025-11-18 19:45] LABS: Microalb ug/mg Crea 28.4 ug/mg Cr
[2025-11-18 19:56] LABS: GGT 65 U/L (<73)
== END 2025-11-18 11:39 | disposition home or self-care (01) ==
LOC: NCHCN 11:38
PROVIDERS: PCP Nurse Practitioner Family; Visit Provider Nurse Practitioner Family
DX: E11.9 Type 2 diabetes mellitus without complications (principal); R74.01 Elevation of levels of liver transaminase levels; E78.5 Hyperlipidemia, unspecified
CPT/HCPCS: 80053; 80061; 85027; 82043; 82570; 82977